=== PATIENT | male | born 1955 | race Caucasian/White ===

== ENCOUNTER 2016-11-17 08:05 | Outpatient (CLI) | payer OTHER ==
[~2016-11-17] VITALS: Ht 195.6 cm; Wt 75.0 kg
--- NOTE | ~2016-11-17 | HEMODYNAMI ---
PATIENT:SADE COOPER MEDICAL RECORD: [id number] : 57 LOCATION:D.CAT ADMISSION DATE: 11/17/16 Generatedon:11/17/201611:38 Patient name: SADE COOPER Patient #: [id number] SSN: : 1955 Date of study: 11/17/2016 Page: Of Hemodynamic Procedure Report Patient Data Patient Demographics Procedure consent was obtained First Name: SADE Gender: Male Last Name: KENNETH : 1955 Middle Initial: L Age: 61 year(s) Patient #: [id number] Race: Unknown Additional ID: [id number] Contact details [address]: [address] [place] [address] State: [place] City: [place] Zip code: [address] Past Medical History Allergies Allergen Reaction Date Comments Reported Penicillins 11/17/2016 Admission Admission Data Admission Date: 11/17/2016 Admission Time: 8:05 Admit Source: Other Height (in.): 77 BSA: 2.06 (m2) Height (cm.): 195.58 BMI: 19.57 (kg/m2) Weight (lbs.): 165 Weight (kg.): 74.84 Lab Results Lab Result Date: 11/17/2016 Lab Result Time: 0:00 Biochemistry Name Units Result Min Max BUN mg/dl 17 --(---*)-- 7 18 Creatinine mg/dl 0.9 --(-*--)-- 0.6 1.3 CBC Name Units Result Min Max Hemoglobin g/dl 16.8 --(---*)-- 13.5 17.5 Procedure Procedure Types Cath Procedure Diagnostic Procedure C [place] w/Coronaries FFR/IVUS Intra-Coronary IVUS Initial PCI Procedure Coronary Stent Initial Miscellaneous Procedures Moderate Sedation up to 15 minutes Peripheral Cath Diagnostic Procedure Cath Peripheral Pjcmo-Qkrsslt-Cao-Off Procedure Description Procedure Date Procedure Date: 11/17/2016 Procedure Start Time: 10:58 Procedure End Time: 11:31 Procedure Staff Name Function Candis Counts RT Scrub Rhett Thomas RT Monitor Rose Landa RN Nurse Librado Silva MD Performing Physician Aixa Gutierrez RT Monitor Procedure Data Cath Procedure Fluoroscopy Diagnostic fluoroscopy Total fluoroscopy Time: 6.9 time: 6.9 min min Diagnostic fluoroscopy Total fluoroscopy dose: 572 dose: 572 mGy mGy Contrast Material Contrast Material Type Amount (ml) Isovue 300 208 Entry Location Entry Primary Successful Side Size Upsize Upsize Entry Closure Succes sful Closure Location (Fr) 1 (Fr) 2 (Fr) Remarks Device Remarks Femoral Right 5 Fr 6 Fr Exoseal artery Short Estimated blood loss: 10 ml Diagnostic catheters Device Type Used For End Catheter Placement Cordis 5Fr JL 4.0 Procedure Catheter (MP) Cordis 5Fr 3DRC Catheter Procedure (MP) Cordis 5Fr Pigtail Procedure Catheter (MP) Diagnostic Infinity 6Fr Procedure JR 4.0 catheter Procedure Complications No complications Procedure Medications Medication Administration Route Dosage Oxygen NC 2 l/min Lidocaine 2% added to field 20 Heparin Flush Bag added to field 2 bags (1000units/500ml NS) 0.9% NaCl I.V. 100 ml/hr Versed I.V. 1 mg Fentanyl I.V. 50 mcg Versed I.V. 1 mg Fentanyl I.V. 50 mcg Versed I.V. 1 mg Fentanyl I.V. 50 mcg Versed I.V. 1 mg Fentanyl I.V. 50 mcg Heparin Bolus I.V. 7500 units Nitroglycerin IC/IA I.C. 50 mcg Brilinta P.O. 180 mg Hemodynamics Rest BSA: 2.06 (m2) HGB: 16.8 (g/dl) O2 Consumption: Estimated: 229.61 (ml/min) O2 Co nsumption indexed: Estimated:111.46 (ml/min/m) Heart Rate: 54 (bpm) Pressure Samples Time Site Value (mmHg) Purpose Heart Use Rate(bpm) 11:00 AO 123/65(88) Snapshot 62 11:04 LV 127/-13,9 Snapshot 65 11:04 LV 128/0,16 Pullback 74 11:04 AO 129/64(91) Pullback 74 Gradients Valve Time Site 1 Site 2 Mean SEP/DFP Peak To Heart Use (mmHg) (sec/min) Peak Rate (mmHg) (bpm) Aortic 11:04 LV AO 0 8 0 74 128/0,16 129/64(91) Calculations Valve P-P Mean Valve Index Valve Source Name Gradient Area Flow (cm2) Aortic 0 0 0 0 Snapshots Pre Cath Intra NCS Post Cath Vital Signs Time Heart Resp SPO2 NIBP (mmHg) Rhythm Pain Sedation Rate (ipm) (%) Status Level (bpm) 10:37:14 52 24 100 155/79(126) NSR 0 (11) 10(A) , No pain 10:41:38 52 19 100 152/73(124) NSR 0 (11) 10(A) , No pain 10:46:00 59 17 98 138/72(114) NSR 0 (11) 10(A) , No pain 10:50:16 58 16 97 128/72(101) NSR 0 (11) 10(A) , No pain 10:54:34 59 16 98 120/62(91) NSR 0 (11) 10(A) , No pain 10:58:46 56 15 99 137/67(108) NSR 0 (11) 9(A) , No pain 11:03:02 68 16 97 131/69(115) NSR 0 (11) 9(A) , No pain 11:07:14 66 16 98 121/70(107) NSR 0 (11) 9(A) , No pain 11:11:24 66 15 96 117/72(91) NSR 0 (11) 9(A) , No pain 11:15:36 63 16 98 112/64(93) NSR 0 (11) 9(A) , No pain 11:19:46 68 14 96 109/63(76) NSR 0 (11) 9(A) , No pain 11:23:51 67 13 97 119/72(94) NSR 0 (11) 10(A) , No pain 11:27:59 65 13 98 126/76(112) NSR 0 (11) 10(A) , No pain 11:31:49 72 24 99 98/77(84) NSR 0 (11) 10(A) , No pain Medications Time Medication Route Dose Verified Delivered Reason Notes Effectiveness by by 10:38:14 Oxygen NC 2 Librado Buffie used for l/min Ricardo Landa outdoor adventure instructor 10:38:21 Lidocaine 2% added 20ml Librado Librado for local to vial Ricardo Silva MD anesthetic field 10:38:27 Heparin Flush added 2 Librado Librado used for Bag to bags Ricardo Sivla MD procedure (1000units/500ml field NS) 10:38:37 0.9% NaCl I.V. 100 Librado Buffie Per physician ml/hr Ricardo Landa RN 10:52:21 Versed I.V. 1 mg Librado Buffie for sedation Ricardo Landa RN 10:52:26 Fentanyl I.V. 50 Librado Buffie for sedation mcg Ricardo Landa RN 10:56:39 Versed I.V. 1 mg Librado Buffie for sedation Ricardo Landa RN 10:56:42 Fentanyl I.V. 50 Librado Buffie for sedation mcg Ricardo Landa RN 11:01:17 Versed I.V. 1 mg Librado Buffie for sedation Ricardo Landa RN 11:01:20 Fentanyl I.V. 50 Ilbrado Buffie for sedation mcg Ricardo Landa RN 11:08:58 Versed I.V. 1 mg Librado Buffie for sedation Ricardo Landa RN 11:09:01 Fentanyl I.V. 50 Librado Buffie for sedation mcg Ricardo Landa RN 11:15:20 Heparin Bolus I.V. 7500 Librado Buffie for units Ricardo Landa RN anticoagulation 11:22:01 Nitroglycerin I.C. 50 Librado Librado for IC/IA mcg Ricardo Silva MD vasodilation 11:30:46 Brilinta P.O. 180 Librado Buffie for mg Ricardo Landa RN antiplatelet therapy Procedure Log Time Note 10:27:09 Rhett HERZOG(R) (CV) sent for patient. Start room use. 10:27:10 Time tracking: Regular hours 10:27:16 Plan of Care:Hemodynamics will remain stable., Cardiac rhythm will remain stable., Comfort level will be maintained., Respiratory function will remain adequate., Patient/ family verbilizes understanding of procedure., Procedure tolerated without complication., Recovers from procedure without complications.. 10:30:37 Patient received from Pre/Post Procedure Room to CCL 2 Alert and oriented. Tansferred to table in Supine position. 10:30:47 Correct patient and procedure confirmed by team. 10:30:47 Warm blankets applied, and minoo hugger turned on for patient comfort. 10:30:49 Signed procedure consent form obtained from patient. 10:30:51 ECG and BP/O2 sat monitors applied to patient. 10:30:52 Full Disclosure recording started 10:36:08 Vital chart was started 10:36:25 Baseline sample Acquired. 10:36:30 Rhythm: sinus bradycardia 10:38:14 Oxygen 2 l/min NC was administered by Rose Landa RN; used for procedure; 10:38:21 Lidocaine 2% 20ml vial added to field was administered by Librado Silva MD; for local anesthetic; 10:38:27 Heparin Flush Bag (1000units/500ml NS) 2 bags added to field was administered by Librado Silva MD; used for procedure; 10:38:37 0.9% NaCl 100 ml/hr I.V. was administered by Rose Landa RN; Per physician; 10:43:08 H&P Date Dictated: 11/07/2016 Within 30 days and on chart., H&P Addendum completed by physician on day of procedure. (MUST COMPLETE FOR ALL OUTPATIENTS). 10:43:12 Pre-procedure instructions explained to patient. 10:43:13 Pre-op teaching completed and patient verbalized understanding. 10:43:15 Family in waiting room. 10:43:18 Patient NPO since Midnight. 10:43:33 Patient allergic to Penicillins 10:43:37 Is the patient allergic to Iodine/contrast media? No. 10:43:41 Is patient on blood thinner?No 10:43:54 Patient diabetic? No. 10:43:59 ----Pre-sedation anethsthesia assessment.---- 10:44:04 Previous problem with sedation/anesthesia? No ? 10:44:05 Snore? Yes 10:44:07 Sleep apnea? Yes 10:44:08 Deviated septum? No 10:44:09 Opens mouth fully? Yes 10:44:10 Sticks out tongue? Yes 10:44:13 Airway obstruction? No ? 10:44:28 Dentures? Yes UPPER IN TIGHT 10:44:35 Patient pain scale 0/10 ?. 10:44:48 IV patent on arrival in right forearm with 0.9% NaCl at [facility]. 10:47:42 Lab Result : Hemoglobin 16.8 g/dl 10:47:42 Lab Result : Creatinine 0.9 mg/dl 10:47:42 Lab Result : BUN 17 mg/dl 10:48:00 Lab results completed and on chart. 10:48:05 Bilateral groins area was prepped with chlora-prep and draped in sterile fashion 10:48:06 Alarms reviewed by R. N. 10:48:07 Sharps counted by scrub and verified by R.N. 10:48:44 Zero performed for pressure channel P1 10:48:54 Use device set Femoral Dx 10:48:56 Acist Syringe opened to sterile field. 10:48:57 Medline Cath Pack opened to sterile field. 10:48:57 Bag Decanter opened to sterile field. 10:48:58 St Ignacio 260cm J .035 wire opened to sterile field. 10:48:58 Terumo 5Fr Haworth Sheath opened to sterile field. 10:49:00 Acist Manifold opened to sterile field. 10:49:00 Acist Hand Control opened to sterile field. 10:49:01 Diagnostic Infinity 5Fr Multipack catheter opened to sterile field. 10:49:02 Tegaderm 4 x 4 opened to sterile field. 10:50:56 --------ALL STOP TIME OUT------ 10:50:56 Physician arrived 10:50:57 Final Timeout: patient, procedure, and site verified with staff and physician. All members of the team are in agreement. 10:50:59 Bilateral groins site verified by team. 10:51:03 Physical assessment completed. ASA score P 2 - A patient with mild systemic disease as per Librado Silva MD. 10:51:23 Sedation plan: IV Moderate Sedation Versed, Fentanyl 10:52:21 Versed 1 mg I.V. was administered by Rose Landa RN; for sedation; 10::26 Fentanyl 50 mcg I.V. was administered by Rose Landa RN; for sedation; 10:56:24 Diagnostic Cath Status : Elective 10:56:29 Admit Source: Other 10::39 Versed 1 mg I.V. was administered by Rose Landa RN; for sedation; :56:39 Patient Height : 195.58 cm 10:56:42 Fentanyl 50 mcg I.V. was administered by Rose Landa RN; for sedation; 10:57:09 Patient Weight : 74.84 kg 10:58:13 Procedure started. 10:58:17 Local anesthetic to right femoral artery with Lidocaine 2% by Librado Silva MD.INITIAL ACCESS ONLY 10:59:26 A 5 Fr sheath was inserted into the Right Femoral artery 10:59:52 A Cordis 5Fr JL 4.0 Catheter (MP) was advanced over the wire and used for Procedure. 11:00:24 LCA angiography performed. 11:01:07 Catheter removed. 11:01:17 Versed 1 mg I.V. was administered by Rose Landa RN; for sedation; 11:01:20 Fentanyl 50 mcg I.V. was administered by Rose Landa RN; for sedation; 11:01:40 A Cordis 5Fr 3DRC Catheter (MP) was advanced over the wire and used for Procedure. 11:02:11 RCA angiography performed. 11:02:50 Catheter removed. 11:03:11 A Cordis 5Fr Pigtail Catheter (MP) was advanced over the wire and used for Procedure. 11:04:37 LV hemodynamics recorded. 11:04:39 LV gram done using UNGER 11:04:46 EF : 55 % 11:05:32 CATHETER PULLED DOWN FOR AO 11:05:34 Abdominal Aortagram was performed. 11:06:04 Left leg runoff performed. 11:07:29 Right leg runoff performed. 11:08:58 Versed 1 mg I.V. was administered by Rose Landa RN; for sedation; 11:09:01 Fentanyl 50 mcg I.V. was administered by Rose Landa RN; for sedation; 11:10:14 Catheter removed. 11:11:12 Floyd BMW [place] 2 J-tip 300cm 0.014 guide wir opened to sterile field. 11:11:13 Merit BasixCompak Inflation Kit opened to sterile field. 11:11:20 High Pressure Extension Tubing (Ricardo) opened to sterile field. 11:11:37 [place] IVUS Catheter opened to sterile field. 11:12:03 A Diagnostic Infinity 6Fr JR 4.0 catheter was advanced over the wire and used for Procedure. 11:12:18 Terumo 6Fr Haworth Sheath opened to sterile field. 11:12:26 Sheath upsized to a 6 Fr Short. 11:15:20 Heparin Bolus 7500 units I.V. was administered by Rose Landa RN; for anticoagulation; 11:15:35 BMW wire advanced. 11:19:09 IVUS catheter advanced over wire. 11:: FFR/IVUS 11:19:13 IVUS pass to RCA lesion performed. 11:22:01 Nitroglycerin IC/IA 50 mcg I.C. was administered by Librado Silva MD; for vasodilation; 11::18 IVUS catheter removed over wire. 11:23:45 ACC PCI Site: dRCA has 72% stenosis. 11:26:37 Inflation Number: 1 A G2Linktronic Integrity 2.5 X 22 stent was prepped and advanced across the Dist RCA. The stent was deployed at 12 HAILEY for 0:10 (min:sec). 11::50 Stent catheter was removed intact over wire. 11::51 Wire removed. 11::52 Guide catheter removed. 11:27:03 Cordis 6Fr Exoseal opened to sterile field. 11:27:23 Sheath removed intact; hemostasis achieved with Exoseal to the Right Femoral artery. 11:27:28 Procedure ended.(Physican Out) 11:27:41 Fluoroscopy time 06.90 minutes. 11:27:49 Fluoroscopy dose: 572 mGy 11:27:49 Flurop Dose total: 572 11:28:05 Contrast amount:Isovue 300 208ml. 11:28:06 Sharps counted by scrub and verified by R.N. 11:28:46 Procedure type changed to Cath procedure, Diagnostic procedure, LHC, LHC w/Coronaries, FFR/IVUS, Intra-Coronary IVUS Initial, PCI procedure, Coronary Stent Initial, Miscellaneous Procedures, Moderate Sedation up to 15 minutes, Peripheral Cath Diagnostic Procedure, Cath Peripheral, Gtkem-Pfgvasz-Eql-Off 11:30:04 Insertion/operative site no bleeding no hematoma. 11:30:09 Post-op/insertion site Right Femoral artery dressed using a 4 x 4 and Tegaderm. 11:30:12 Post Procedure Pulses reassessed and unchanged 11:30:18 Post-procedure physical assessment completed. ASA score P 2 - A patient with mild systemic disease as per Librado Silva MD. 11:30:27 Post procedure rhythm: unchanged. 11:30:30 Estimated blood loss: 10 ml 11:30:32 Post procedure instruction explained to patient.Patient verbalizes understanding. 11:30:45 Procedure and supply charges have been captured, reviewed, submitted and are correct. 11:30:46 Brilinta 180 mg P.O. was administered by Rose Landa RN; for antiplatelet therapy; 11:31:00 Procedure Complication : No complications 11:31:04 Vital chart was stopped 11:31:06 See physician's report for complete and final results. 11:31:17 Report given to Pre/Post Procedure Room. 11:31:34 Patient transfered to Pre/Post Procedure Room with Stretcher. 11:31:38 Full Disclosure recording stopped 11:31:38 Procedure ended. 11:31:41 End room use (Document Last) Intervention Summary Intervention Notes Time ActionType Lesion and Equipment Action# Pressure Duration Attributes Used 11:26:37 Place stent Dist RCA Medtronic 1 12 00:10 Integrity 2.5 X 22 stent Device Usage Item Name Manufacture Quantity Catalog Hospital Part Current Minimal L ot# / Number Charge Number Stock Stock Serial# Code Acist Acist 1 [id number] [id number] 316798 912349 20 Syringe Medical Systems Inc Bag Microtek 1 2002S 108176 48076 442660 5 Decanter Medical Inc. Medline Cardinal 1 [id number] 224548 35133 655785 5 Cath Pack Health Terumo 5Fr Terumo 1 [id number] 386767 479689 888720 [address] St Ignacio 1 735281 827170 925052 972293 30 260cm J .035 wire Acist Hand Acist 1 55698 809719 173992 188508 5 Control Medical Systems Inc Acist Acist 1 93684 471375 357565 890719 5 Manifold Medical Systems Inc Diagnostic Cardinal 1 [id number] 486440 20526 042525 30 Infinity Health 5Fr Multipack catheter Tegaderm 4 3M 1 1626W 662398 507017 628705 5 x 4 Cordis 5Fr Cardinal 1 088165 5 JL 4.0 Health Catheter (MP) Cordis 5Fr Cardinal 1 837361 5 3DRC Health Catheter (MP) Cordis 5Fr Cardinal 1 410217 5 Pigtail Health Catheter (MP) Floyd BMW Floyd 1 [id number] 332746 038139 655885 5 [place] 2 Vascular J-tip 300cm 0.014 guide wir Merit Merit 1 [id number] 746533 095680 053020 15 [id number] Medical Inflation Kit High Merit 1 [id number] 064993 51531 782150 10 Pressure Medical Extension Tubing (Silva) [place] 1 [id number] 143537 735872 398351 8 [place] IVUS Catheter Diagnostic Cardinal 1 [id number] 850459 900757 0248149 5 Infinity Health 6Fr JR 4.0 catheter Terumo 6Fr Terumo 1 [id number] 048502 329638 728652 40 Haworth Sheath Medtronic Medtronic 1 [id number] 437742 974564 1 0 [id number] Integrity 2.5 X 22 stent Cordis 6Fr Cardinal 1 EX600 919248 110117 873084 10 [facility] Property[employer]uru Signature Audit [place] Stage Time Signature Unsigned Intra-Procedure 11/17/2016 Candis Chirinos Counts 11:34:45 AM Counts RT(R) RT(R) 11/17/2016 11:37:57 AM Intra-Procedure 11/17/2016 Aixa Gutierrez 11:38:31 AM RT(R) Signatures Monitor : Rhett Thomas RT Signature : Date : Time : Monitor : Aixa Gutierrez Signature : RT Date : Time : [place] [id number] [place] [address]
[2016-11-17] MEDS ORDERED: TYLENOL W/CODEI1 TAB PO (08:47)
[2016-11-17] MEDS ORDERED: TRAZODONE HCL150 MG PO (08:47)
[2016-11-17] MEDS ORDERED: ZANAFLEX4 MG PO (08:48)
[2016-11-17 08:49] VITALS: BP 169/78; Ht 195.6 cm; Wt 75.0 kg
[2016-11-17 08:58] LABS: BASOPHILS 0.2 % (0-2); EOSINOPHILS 2.3 % (0-7); HEMATOCRIT 49.8 % (42.0-54.0); HEMOGLOBIN 16.8 g/dL (13.5-17.5); IMMATURE GRANULOCYTES 0.2 % (0-5); MCH 33.7 pg (26.0-34.0); MCHC 33.7 g/dL (31.0-37.0); MCV 99.8 fL (80.0-100.0); MEAN PLATELET VOLUME 10.5 fL (7.4-10.4); MONOCYTES 5.3 % (2-11); PLATELET COUNT 205 10x3/uL (130-400); RBC 4.99 10x6/uL (4.20-6.10); RDW 12.7 % (11.5-14.5); WBC 11.2 10x3/uL (4.8-10.8)
[2016-11-17 09:08] LABS: CALC OSMOLALITY 283 mosm/kg (275-300); CALCIUM 9.3 mg/dL (8.5-10.1); CARBON DIOXIDE 26.4 mmol/L (21.0-32.0); CHLORIDE - SERUM 104 mmol/L (98-107); CREATININE - SERUM 0.9 mg/dL (0.6-1.3); GLUCOSE 116 mg/dL (74-106); POTASSIUM - SERUM 4.2 mmol/L (3.5-5.1); SODIUM 141 mmol/L (136-145); UREA NITROGEN 17 mg/dL (7-18); eGFR NON AFRICAN AMERICAN > 90 mL/min (90-120)
[2016-11-17] MEDS ORDERED: BAYER CHEWABLE81 MG PO (11:43)
[2016-11-17] MEDS ORDERED: BRILINTA90 MG PO (11:50)
--- NOTE | 2016-11-17 12:42 | NUR ---
1200 LYING FLAT, ROOM AIR WITH NO DISTRESS. NSR RATE 62 W NO C/O CHEST PAIN. PULSES PALP X 4. R GROIN 6F EXOSEAL C/D/I WITH NO HEMATOMA OR BLEEDING. AT BEDSIDE. 1240 VOIDED 400CC VIA URINAL, R GROIN REMAINS C/D/I
--- NOTE | 2016-11-17 13:12 | NUR ---
EATING TURKEY SANDWICH WITH ASSISTANCE FROM AT BEDSIDE.
--- NOTE | 2016-11-17 15:30 | NUR ---
1500 HOB ELEVATED, WILL MONITOR R GROIN FOR BLEEDING. ALL VITALS WNL. 1530 AMBULATED TO BATHROOM TO VOID. PIV REMOVED FROM RIGHT FOREARM WITH BANDAID APPLIED.
--- NOTE | 2016-11-17 15:38 | NUR ---
D/C INSTRUCTIONS DISCUSSED WITH PATIENT AND AT BEDSIDE. WHEELED OUT VIA WHEELCHAIR.
== END 2016-11-17 15:39 | disposition home or self-care (01) ==
LOC: D.CATH 08:05
PROVIDERS: Internal Medicine Cardiovascular Disease
DX: I25.119 Atherosclerotic heart disease of native coronary artery with unspecified angina pectoris (principal); I70.213 Atherosclerosis of native arteries of extremities with intermittent claudication, bilateral legs; Z01.812 Encounter for preprocedural laboratory examination

== ENCOUNTER 2016-12-31 11:43 | Outpatient (CLI) | payer OTHER ==
[~2016-12-31] VITALS: Ht 195.6 cm; Wt 79.5 kg
--- NOTE | ~2016-12-31 | HEMODYNAMI ---
PATIENT:SADE COOPER MEDICAL RECORD: [id number] : 57 LOCATION:D.CAT ADMISSION DATE: 12/31/16 Generatedon:12/31/201617:33 Patient name: SADE COOPER Patient #: [id number] SSN: : 1955 Date of study: 12/31/2016 Page: Of Hemodynamic Procedure Report Patient Data Patient Demographics Procedure consent was obtained First Name: SADE Gender: Male Last Name: KENNETH : 1955 Middle Initial: L Age: 61 year(s) Patient #: [id number] Race: Unknown Additional ID: [id number] Contact details [address]: [address] [place] [address] State: [place] City: [place] Zip code: [address] Past Medical History Allergies Allergen Reaction Date Comments Reported Penicillins 11/17/2016 Other allergy 12/31/2016 N Admission Admission Data Admission Date: 12/31/2016 Admission Time: 11:43 Lab Results Lab Result Date: 12/31/2016 Lab Result Time: 12:25 Biochemistry Name Units Result Min Max BUN mg/dl 13 --(--*-)-- 7 18 Creatinine mg/dl 0.7 --(*---)-- 0.6 1.3 CBC Name Units Result Min Max Hematocrit % 42.2 --(*---)-- 42 54 Hemoglobin g/dl 14.5 --(*---)-- 13.5 17.5 Procedure Procedure Types Cath Procedure Miscellaneous Procedures Peripheral vascular Intervention Stent Stent-Fem/Popw/plasty Procedure Description Procedure Date Procedure Date: 12/31/2016 Procedure Start Time: 15:12 Procedure End Time: 17:30 Procedure Staff Name Function Candis Hendricks RT Scrub Rose Landa RN Nurse Librado Hernandez MD Performing Physician Koby Robertson RT Monitor Procedure Data Cath Procedure Fluoroscopy Diagnostic fluoroscopy Total fluoroscopy Time: time: 65.5 min 65.5 min Diagnostic fluoroscopy Total fluoroscopy dose: 573 dose: 573 mGy mGy Contrast Material Contrast Material Type Amount (ml) Isovue 300 205 Entry Location Entry Primary Successful Side Size Upsize 1 Upsize Entry Closure [place] ccessful Closure Location (Fr) (Fr) 2 (Fr) Remarks Device Remarks Femoral Right 6 Fr 6 Fr 6 Fr Exoseal artery Short Mid-Length Short Estimated blood loss: 10 ml Diagnostic catheters Device Type Used For End Catheter Placement Cordis Tempo 5Fr UF Procedure catheter Procedure Complications No complications Procedure Medications Medication Administration Route Dosage Oxygen NC 2 l/min Lidocaine 2% added to field 20 Heparin Flush Bag added to field 2 bags (1000units/500ml NS) 0.9% NaCl I.V. 100 ml/hr Versed I.V. 1 mg Fentanyl I.V. 50 mcg Heparin Bolus I.V. 7000 units Versed I.V. 1 mg Fentanyl I.V. 50 mcg Versed I.V. 1 mg Fentanyl I.V. 25 mcg Fentanyl I.V. 25 mcg Versed I.V. 1 mg Fentanyl I.V. 50 mcg Fentanyl I.V. 50 mcg Heparin Bolus I.V. 4000 units Fentanyl I.V. 50 mcg Versed I.V. 1 mg Versed I.V. 1 mg Brilinta P.O. 90 mg Hemodynamics Rest HGB: 14.5 (g/dl) Heart Rate: 59 (bpm) Snapshots Pre Cath Intra NCS Post Cath Vital Signs Time Heart Resp SPO2 NIBP (mmHg) Rhythm Pain Sedation Rate (ipm) (%) Status Level (bpm) 14:56:32 64 16 100 163/81(129) NSR 0 (11) 10(A) , No pain 15:00:57 54 24 100 149/76(121) NSR 0 (11) 10(A) , No pain 15:05:13 59 14 100 150/77(118) NSR 0 (11) 10(A) , No pain 15:09:33 52 15 99 158/73(112) NSR 0 (11) 10(A) , No pain 15:13:53 63 20 98 134/79(93) NSR 0 (11) 10(A) , No pain 15:18:07 57 16 98 143/72(114) NSR 0 (11) 9(A) , No pain 15:22:23 59 16 98 153/74(85) NSR 0 (11) 9(A) , No pain 15:26:45 62 24 97 121/69(90) NSR 0 (11) 9(A) , No pain 15:30:55 59 15 98 137/71(86) NSR 0 (11) 9(A) , No pain 15:35:09 62 15 98 126/73(103) NSR 0 (11) 9(A) , No pain 15:39:19 57 15 98 140/74(117) NSR 0 (11) 9(A) , No pain 15:43:33 55 13 96 118/67(78) NSR 0 (11) 9(A) , No pain 15:47:43 56 13 97 120/65(92) NSR 0 (11) 9(A) , No pain 15:51:49 56 14 97 134/77(104) NSR 0 (11) 9(A) , No pain 15:56:03 55 13 97 114/68(89) NSR 0 (11) 9(A) , No pain 16:00:10 55 15 96 119/65(88) NSR 0 (11) 9(A) , No pain 16:04:20 55 14 95 106/62(84) NSR 0 (11) 9(A) , No pain 16:09:23 57 17 96 119/64(85) NSR 0 (11) 9(A) , No pain 16:13:35 57 16 96 117/58(77) NSR 0 (11) 9(A) , No pain 16:17:43 58 16 96 116/70(82) NSR 0 (11) 9(A) , No pain 16:21:45 67 23 93 127/83(97) NSR 0 (11) 9(A) , No pain 16:25:57 58 18 95 119/69(92) NSR 0 (11) 9(A) , No pain 16:30:07 57 19 96 127/65(91) NSR 0 (11) 9(A) , No pain 16:34:21 60 17 94 119/65(89) NSR 0 (11) 9(A) , No pain 16:38:30 57 17 96 112/66(80) NSR 0 (11) 9(A) , No pain 16:42:36 53 18 97 128/66(99) NSR 0 (11) 9(A) , No pain 16:46:48 58 19 97 128/68(107) NSR 0 (11) 9(A) , No pain 16:50:58 59 18 96 134/72(105) NSR 0 (11) 9(A) , No pain 16:55:10 61 19 96 129/77(90) NSR 0 (11) 9(A) , No pain 16:59:22 60 16 96 133/71(105) NSR 0 (11) 9(A) , No pain 17:03:34 61 15 95 119/71(87) NSR 0 (11) 9(A) , No pain 17:07:42 60 16 96 129/70(95) NSR 0 (11) 9(A) , No pain 17:11:56 60 16 95 112/63(77) NSR 0 (11) 9(A) , No pain 17:16:01 60 17 95 101/65(79) NSR 0 (11) 9(A) , No pain 17:20:05 64 19 95 116/66(98) NSR 0 (11) 10(A) , No pain 17:24:11 63 26 94 111/75(92) NSR 0 (11) 10(A) , No pain 17:28:17 60 17 95 120/71(102) NSR 0 (11) 10(A) , No pain Medications Time Medication Route Dose Verified Delivered Reason Notes Effectiveness by by 14:58:42 Oxygen NC 2 Librado Buffie used for l/min Ricardo Landa RN procedure 14:58:59 Lidocaine 2% added 20ml Librado Librado for local to vial Ricardo Hernandez MD anesthetic field 14:59:06 Heparin Flush added 2 Librado Librado used for Bag to bags Ricardo Hernandez MD procedure (1000units/500ml field NS) 14:59:15 0.9% NaCl I.V. 100 Librado Buffie Per physician ml/hr Ricardo Landa RN 15:10:51 Versed I.V. 1 mg Librado Buffie for sedation Ricardo Landa RN 15:10:57 Fentanyl I.V. 50 Librado Buffie for sedation mcg Ricardo Landa RN 15:21:14 Heparin Bolus I.V. 7,000 Librado Buffie for verifi ed units Ricardo Landa RN anticoagulation with dr hernandez 15:21:58 Versed I.V. 1 mg Librado Buffie for sedation Ricardo Landa RN 15:22:01 Fentanyl I.V. 50 Librado Buffie for sedation mcg Ricardo Landa RN 15:37:20 Versed I.V. 1 mg Librado Buffie for sedation Ricardo Landa RN 15:37:24 Fentanyl I.V. 25 Librado Buffie for sedation mcg Ricardo Landa RN 15:55:39 Fentanyl I.V. 25 Librado Buffie for sedation mcg Ricardo Landa RN 16:06:39 Versed I.V. 1 mg Librado Buffie for sedation Ricardo Landa RN 16:06:44 Fentanyl I.V. 50 Librado Buffie for sedation mcg Ricardo Landa RN 16:22:48 Fentanyl I.V. 50 Librado Buffie for sedation mcg Ricardo Landa RN 16:40:51 Fentanyl I.V. 50 Librado Buffie for sedation mcg Ricardo Landa RN 16:46:46 Heparin Bolus I.V. 4000 Librado Buffie for verifi ed units Ricardo Landa RN anticoagulation with dr hernandez' 16:58:59 Versed I.V. 1 mg Librado Buffie for sedation Ricardo Landa RN 17:15:31 Versed I.V. 1 mg Librado Buffie for sedation Ricardo Landa RN 17:27:11 Brilinta P.O. 90 mg Librado Buffie for Ricardo Landa RN antiplatelet therapy Procedure Log Time Note 14:38:19 Rose Landa RN sent for patient. Start room use. 14:38:20 Time tracking: Regular hours 14:38:24 Plan of Care:Hemodynamics will remain stable., Cardiac rhythm will remain stable., Comfort level will be maintained., Respiratory function will remain adequate., Patient/ family verbilizes understanding of procedure., Procedure tolerated without complication., Recovers from procedure without complications.. 14:49:16 Patient received from Pre/Post Procedure Room to CCL 2 Alert and oriented. Tansferred to table in Supine position. 14:49:17 Correct patient and procedure confirmed by team. 14:49:17 Warm blankets applied, and minoo hugger turned on for patient comfort. 14:49:18 Signed procedure consent form obtained from patient. 14:49:19 ECG and BP/O2 sat monitors applied to patient. 14:49:20 Full Disclosure recording started 14:55:18 Vital chart was started 14:58:42 Oxygen 2 l/min NC was administered by Rose Landa RN; used for procedure; 14:58:59 Lidocaine 2% 20ml vial added to field was administered by Librado Hernandez MD; for local anesthetic; 14:59:06 Heparin Flush Bag (1000units/500ml NS) 2 bags added to field was administered by Librado Hernandez MD; used for procedure; 14:59:15 0.9% NaCl 100 ml/hr I.V. was administered by Rose Landa RN; Per physician; 15:03:54 Baseline sample Acquired. 15:04:01 Rhythm: sinus rhythm 15:04:21 H&P Date Dictated: 12/19/2016 Within 30 days and on chart., H&P Addendum completed by physician on day of procedure. (MUST COMPLETE FOR ALL OUTPATIENTS). 15:04:22 Pre-procedure instructions explained to patient. 15:04:23 Pre-op teaching completed and patient verbalized understanding. 15:04:24 Family in waiting room. 15:04:25 Patient NPO since Midnight. 15:04:38 Patient allergic to Other allergyPCN 15:04:42 Is the patient allergic to Iodine/contrast media? No. 15:04:44 Is patient on blood thinner?Yes 15:04:50 ACC The patient was administered the following blood thiners within the last 24 hours: ACCBrilinta 15:04:55 Patient diabetic? No. 15:05:00 Previous problem with sedation/anesthesia? No ? 15:05:01 Snore? Yes 15:05:03 Sleep apnea? No 15:05:04 Opens mouth fully? Yes 15:05:04 Deviated septum? No 15:05:05 Sticks out tongue? Yes 15:05:08 Airway obstruction? No ? 15:05:14 Dentures? Yes IN TIGHT 15:05:18 Pre procedure: right dorsailis pedis pulse Doppler 15:05:20 Pre procedure: left dorsailis pedis pulse Doppler 15:05:23 Patient pain scale 0/10 ?. 15:05:35 IV patent on arrival in left hand with 0.9% NaCl at [facility]. 15:05:58 Lab results completed and on chart. 15:06:39 Lab Result : Hemoglobin 14.5 g/dl 15::39 Lab Result : Hematocrit 42.2 % 15:06:39 Lab Result : BUN 13 mg/dl 15:06:39 Lab Result : Creatinine 0.7 mg/dl 15:06:46 Bilateral groins area was prepped with chlora-prep and draped in sterile fashion 15:06:47 Sharps counted by scrub and verified by R.N. 15:06:47 Alarms reviewed by R. N. 15:07:07 Use device set Femoral PCI 15:07:08 Tegaderm 4 x 4 opened to sterile field. 15:07:09 Acist Manifold opened to sterile field. 15:07:09 Merit BasixCompak Inflation Kit opened to sterile field. 15:07:10 St Ignacio 260cm J .035 wire opened to sterile field. 15:07:12 Terumo 6Fr [place] Sheath opened to sterile field. 15:07:12 Medline Cath Pack opened to sterile field. 15:07:13 Bag Decanter opened to sterile field. 15:07:14 Acist Hand Control opened to sterile field. 15:07:15 Acist Syringe opened to sterile field. 15:08:05 CSI Regalia wire 300cm opened to sterile field. 15:08:11 Physician arrived 15:08:12 Final Timeout: patient, procedure, and site verified with staff and physician. All members of the team are in agreement. 15:08:12 --------ALL STOP TIME OUT------ 15:08:13 Bilateral groins site verified by team. 15:08:15 Physical assessment completed. ASA score P 2 - A patient with mild systemic disease as per Librado Hernandez MD. 15:08:18 Sedation plan: IV Moderate Sedation Versed, Fentanyl 15:10:51 Versed 1 mg I.V. was administered by Rose Landa RN; for sedation; 15:10:57 Fentanyl 50 mcg I.V. was administered by Rose Landa RN; for sedation; 15:12:32 Procedure started. 15:12:38 Local anesthetic to right femoral artery with Lidocaine 2% by Librado Hernandez MD.INITIAL ACCESS ONLY 15:12:48 A 6 Fr Short sheath was inserted into the Right Femoral artery 15:13:38 Zero performed for pressure channel P1 15:14:44 Terumo ANGLE 260cm glide wire opened to sterile field. 15:15:11 Terumo 6Fr [place] Destination Sheath opened to sterile field. 15:15:42 A Cordis Tempo 5Fr UF catheter was advanced over the wire and used for Procedure. 15:15:48 GLIDE wire advanced. 15:16:12 GLIDE WIRE ADVANCED AROUND HORN. 15:16:22 Catheter removed. 15:16:41 Sheath upsized to a 6 Fr Mid-Length. 15:21:14 Heparin Bolus 7,000 units I.V. was administered by Rose Landa RN; for anticoagulation; verified with dr hernandez 15:21:58 Versed 1 mg I.V. was administered by Rose Landa RN; for sedation; 15:22:01 Fentanyl 50 mcg I.V. was administered by Rose Landa RN; for sedation; 15:24:26 Regalia wire advanced. 15:26:27 Terumo 5FR STRAIGHT 100CM glide catheter opened to sterile field. 15:27:06 5 Fr STRAIGHT GLIDE guide catheter was inserted over the wire 15:34:26 Wire removed. 15:35:11 CSI ASAHI TREASURE 12 300CM guide wire opened to sterile field. 15:35:41 TREASURE wire advanced. 15:37:20 Versed 1 mg I.V. was administered by Rose Landa RN; for sedation; 15:37:24 Fentanyl 25 mcg I.V. was administered by Rose Landa RN; for sedation; 15:54:33 Wire advanced across lesion. 15:55:39 Fentanyl 25 mcg I.V. was administered by Rose Landa RN; for sedation; 16:06:39 Versed 1 mg I.V. was administered by Rose Landa RN; for sedation; 16:06:44 Fentanyl 50 mcg I.V. was administered by Rose Landa RN; for sedation; 16:15:05 Inflation number: 1 A Saber 2 x 2 x 150 balloon was prepped and advanced across the Mid Superficial Femoral, Left, then inflated to 3 HAILEY for 0:10 (min:sec). 16:16:31 Wire removed. 16:17:14 Floyd Fielder XT J 300cm 0.014 guide wire opened to sterile field. 16:17:42 FIELDER wire advanced. 16:18:33 CSI Regalia wire 300cm opened to sterile field. 16:19:01 Wire removed. 16:19:06 REGALIA wire advanced. 16:22:48 Fentanyl 50 mcg I.V. was administered by Rose Landa RN; for sedation; 16:24:01 Wire removed. 16:25:39 CSI ASAHI TREASURE 12 300CM guide wire opened to sterile field. 16:25:44 TREASURE wire advanced. 16:40:51 Fentanyl 50 mcg I.V. was administered by Rose Landa RN; for sedation; 16:44:46 Wire advanced across lesion. 16:45:29 Inflation number: 2 The Saber 2 x 2 x 150 balloon was reinflated across the Mid Superficial Femoral, Left, to 10 HAILEY for 0:10 (min:sec). 16:45:57 Inflation number: 3 The Saber 2 x 2 x 150 balloon was reinflated across the Mid Superficial Femoral, Left, to 10 HAILEY for 0:10 (min:sec). 16:46:20 Inflation number: 4 The Saber 2 x 2 x 150 balloon was reinflated across the Mid Superficial Femoral, Left, to 10 HAILEY for 0:10 (min:sec). 16:46:46 Heparin Bolus 4000 units I.V. was administered by Rose Landa RN; for anticoagulation; verified with dr hernandez' 16:46:47 Inflation number: 5 The Saber 2 x 2 x 150 balloon was reinflated across the Mid Superficial Femoral, Left, to 10 HAILEY for 0:10 (min:sec). 16:47:07 Balloon removed over the wire. 16:50:05 Inflation number: 6 A Saber 4.0 x 100 x 150 balloon was prepped and advanced across the Mid Superficial Femoral, Left, then inflated to 6 HAILEY for 0:10 (min:sec). 16:50:44 Inflation number: 7 The Saber 4.0 x 100 x 150 balloon was reinflated across the Mid Superficial Femoral, Left, to 6 HAILEY for 0:10 (min:sec). 16:51:12 Balloon removed over the wire. 16:55:32 Cordis SMART 6 X 150 X 120 stent was deployed across Mid Superficial Femoral, Left . 16:56:59 Stent catheter was removed intact over wire. 16:58:59 Versed 1 mg I.V. was administered by Rose Landa RN; for sedation; 17:00:21 Inflation number: 8 A Saber 6.0 X 100 X 150 balloon was prepped and advanced across the Mid Superficial Femoral, Left, then inflated to 10 HAILEY for 0:10 (min:sec). 17:01:24 Inflation number: 9 The Saber 6.0 X 100 X 150 balloon was reinflated across the Mid Superficial Femoral, Left, to 8 HAILEY for 0:10 (min:sec). 17:02:33 Inflation number: 10 The Saber 6.0 X 100 X 150 balloon was reinflated across the Mid Superficial Femoral, Left, to 10 HAILEY for 0:10 (min:sec). 17:03:36 Balloon removed over the wire. 17:04:52 Cordis 6Fr Exoseal opened to sterile field. 17:06:15 Inflation number: 11 A Saber 6.0 x 6 x 150 balloon was prepped and advanced across the Mid Superficial Femoral, Left, then inflated to 13 HAILEY for 0:10 (min:sec). 17:08:14 Balloon removed over the wire. 17:12:58 Cordis SMART 6 x 100 x 120 stent was deployed across Mid Superficial Femoral, Left . 17:13:28 Inflation number: 12 The Saber 6.0 X 100 X 150 balloon was reinflated across the Mid Superficial Femoral, Left, to 6 HAILEY for 0:10 (min:sec). 17:14:13 Inflation number: 13 The Saber 6.0 X 100 X 150 balloon was reinflated across the Mid Superficial Femoral, Left, to 5 HAILEY for 0:10 (min:sec). 17:15:31 Versed 1 mg I.V. was administered by Rose Landa RN; for sedation; 17:17:16 Inflation number: 14 The Saber 6.0 X 100 X 150 balloon was reinflated across the Mid Superficial Femoral, Left, to 4 HAILEY for 0:30 (min:sec). 17:18:13 Balloon removed over the wire. 17:18:14 Wire removed. 17:18:24 Sheath upsized to a 6 Fr Short. 17:18:32 Sheath removed intact; hemostasis achieved with Exoseal to the Right Femoral artery. 17:19:04 Procedure ended.(Physican Out) 17:22:29 Fluoroscopy time 65.50 minutes. 17:22:33 Fluoroscopy dose: 573 mGy 17:22:33 Flurop Dose total: 573 17:22:47 Contrast amount:Isovue 300 205ml. 17:23:05 Sharps counted by scrub and verified by R.N. 17:23:55 Insertion/operative site no bleeding no hematoma. 17:23:58 Post-op/insertion site Right Femoral artery dressed using a 4 x 4 and Tegaderm. 17:24:02 Post right femoral artery:stable, soft, clean and dry 17:24:03 Post Procedure Pulses reassessed and unchanged 17:24:05 Post-procedure physical assessment completed. ASA score P 2 - A patient with mild systemic disease as per Librado Hernandez MD. 17:24:07 Post procedure rhythm: unchanged. 17:24:10 Estimated blood loss: 10 ml 17:24:16 Patient needs reinforcement of post procedure teaching. 17:24:16 Post procedure instruction explained to patient.Patient verbalizes understanding. 17:25:18 Procedure type changed to Cath procedure, Miscellaneous Procedures, Peripheral vascular Intervention, Stent, Stent-Fem/Popw/plasty 17:27:11 Brilinta 90 mg P.O. was administered by Rose Landa RN; for antiplatelet therapy; 17:29:59 Procedure and supply charges have been captured, reviewed, submitted and are correct. 17:30:10 Procedure Complication : No complications 17:30:13 See physician's report for complete and final results. 17:30:13 Vital chart was stopped 17:30:15 Report given to PCU. 17:30:38 Patient transfered to PCU with Stretcher. 17:30:41 Full Disclosure recording stopped 17:30:41 Procedure ended. 17:31:36 End room use (Document Last) Intervention Summary Intervention Notes Time ActionType Lesion and Equipment Action# Pressure Duration Attributes Used 16:15:05 Inflate Mid Saber 2 x 1 3 00:10 balloon Superficial 2 x 150 Femoral, balloon Left 16:45:29 Reinflate Mid Saber 2 x 2 10 00:10 balloon Superficial 2 x 150 Femoral, balloon Left 16:45:57 Reinflate Mid Saber 2 x 3 10 00:10 balloon Superficial 2 x 150 Femoral, balloon Left 16:46:20 Reinflate Mid Saber 2 x 4 10 00:10 balloon Superficial 2 x 150 Femoral, balloon Left 16:46:47 Reinflate Mid Saber 2 x 5 10 00:10 balloon Superficial 2 x 150 Femoral, balloon Left 16:50:05 Inflate Mid Saber 4.0 6 6 00:10 balloon Superficial x 100 x Femoral, 150 Left balloon 16:50:44 Reinflate Mid Saber 4.0 7 6 00:10 balloon Superficial x 100 x Femoral, 150 Left balloon 16:55:32 Deploy self Mid Cordis 1 expanding Superficial SMART 6 X stent Femoral, 150 X 120 Left stent 17:00:21 Inflate Mid Saber 6.0 8 10 00:10 balloon Superficial X 100 X Femoral, 150 Left balloon 17:01:24 Reinflate Mid Saber 6.0 9 8 00:10 balloon Superficial X 100 X Femoral, 150 Left balloon 17:02:33 Reinflate Mid Saber 6.0 10 10 00:10 balloon Superficial X 100 X Femoral, 150 Left balloon 17:06:15 Inflate Mid Saber 6.0 11 13 00:10 balloon Superficial x 6 x 150 Femoral, balloon Left 17:12:58 Deploy self Mid Cordis 1 expanding Superficial SMART 6 x stent Femoral, 100 x 120 Left stent 17:13:28 Reinflate Mid Saber 6.0 12 6 00:10 balloon Superficial X 100 X Femoral, 150 Left balloon 17:14:13 Reinflate Mid Saber 6.0 13 5 00:10 balloon Superficial X 100 X Femoral, 150 Left balloon 17:17:16 Reinflate Mid Saber 6.0 14 4 00:30 balloon Superficial X 100 X Femoral, 150 Left balloon Device Usage Item Name Manufacture Quantity Catalog Hospital Part Current [facility] l Lot# / Number Charge Number Stock Stock Serial# Code [facility] 4 1 [id number] 262390 591489 5 x 4 1 [id number] [id number] 415463 268059 15 BasixCompak Inflation Kit Acist [facility] 1 40220 546888 891267 144289 [address] Ignacio 1 531519 377549 686574 566933 30 260cm J .035 wire Medline Cardinal 1 [id number] 062284 56413 183286 5 Cath Pack Health Terumo 6Fr Terumo 1 [id number] 381263 366446 542099 40 [place] Sheath Bag Microtek 1 [facility] 982866 82370 525684 5 Decanter [employer] Inc. Acist Hand Acist Medical 1 99941 135048 646921 294123 5 Control Systems Inc Acist Acist Medical 1 93445 706978 826715 101467 20 Syringe Systems Inc CSI Regalia Cardiovascular 2 [id number] 062529 113155 1 wire 300cm systems Terumo Terumo 1 [id number] 553420 960270 366563 5 ANGLE 260cm glide wire Terumo 6Fr Terumo 1 [id number] 198275 42587 281525 5 [place] Destination Sheath Cordis Cardinal 1 [id number] 742655 227330 595926 10 Tempo 5Fr Health UF catheter Terumo 5FR Terumo 1 [id number] 435455 37689 020069 4 STRAIGHT 100CM glide catheter CSI ASAHI Cardiovascular 2 [id number] 833618 866259 434842 5 TREASURE 12 systems 300CM guide wire Saber 2 x 2 Cardinal 1 [id number] 509525 482196 5 x 150 Health balloon Floyd Floyd 1 [id number] 329125 476834 684712 5 Fielder XT Vascular J 300cm 0.014 guide wire Saber 4.0 x Cardinal 1 [id number] 003142 599543 5 100 x 150 Health balloon Cordis Cardinal 1 [id number] 748111 879733 0 [id number] SMART 6 X Health 150 X 120 stent Saber 6.0 X Cardinal 1 [id number] 238780 162758 5 100 X 150 Health balloon Saber 6.0 x Cardinal 1 [id number] 946196 738955 315318 5 6 x 150 Health balloon Cordis Cardinal 1 [id number] 482897 865011 0 [id number] SMART 6 x Health 100 x 120 stent Cordis 6Fr Cardinal 1 [id number] 910392 225776 053122 10 [facility] Signature Audit [place] Stage Time Signature Unsigned Intra-Procedure 12/31/2016 Koby Robertson RT(Madhu) 5:33:50 PM Signatures Monitor : Koby Robertson RT Signature : Date : Time : [facility] [address] [facility] [place] [address]
[~2016-12-31 11:43] MED LIST: BAYER CHEWABLE81 MG PO; BRILINTA90 MG PO; TRAZODONE HCL150 MG PO; TYLENOL W/CODEI1 TAB PO; ZANAFLEX4 MG PO
[2016-12-31 12:13] VITALS: BP 157/69; BMI 20.2
[2016-12-31 12:31] LABS: BASOPHILS 0.4 % (0-2); EOSINOPHILS 2.7 % (0-7); HEMATOCRIT 42.2 % (42.0-54.0); HEMOGLOBIN 14.5 g/dL (13.5-17.5); IMMATURE GRANULOCYTES 0.1 % (0-5); MCH 33.3 pg (26.0-34.0); MCHC 34.4 g/dL (31.0-37.0); MCV 96.8 fL (80.0-100.0); MEAN PLATELET VOLUME 10.1 fL (7.4-10.4); MONOCYTES 6.8 % (2-11); PLATELET COUNT 206 10x3/uL (130-400); RBC 4.36 10x6/uL (4.20-6.10); RDW 13.3 % (11.5-14.5); WBC 8.3 10x3/uL (4.8-10.8)
[2016-12-31 12:41] LABS: CALC OSMOLALITY 278 mosm/kg (275-300); CALCIUM 8.5 mg/dL (8.5-10.1); CARBON DIOXIDE 27.7 mmol/L (21.0-32.0); CHLORIDE - SERUM 105 mmol/L (98-107); CREATININE - SERUM 0.7 mg/dL (0.6-1.3); GLUCOSE 96 mg/dL (74-106); POTASSIUM - SERUM 3.4 mmol/L (3.5-5.1); SODIUM 140 mmol/L (136-145); UREA NITROGEN 13 mg/dL (7-18); eGFR NON AFRICAN AMERICAN > 90 mL/min (90-120)
--- NOTE | 2016-12-31 19:54 | NUR ---
RESUMED CARE OF PT, LYING IN BED RESPIRATIONS EVEN AND UNLABORED ON ROOM AIR. 73 SR ON TELEMETRY. RIGHT GROIN WNL, PEDAL PULSE PALPABLE. NS INFUSING @ 75. NO NEEDS VOICED AT THIS TIME, CALL LIGHT IN REACH. WILL CONTINUE TO MONITOR. SEE NURSE ASSESSMENT.
[2016-12-31 20:02] VITALS: BP 111/62
[2017-01-01 00:35] VITALS: BP 124/54
[2017-01-01 01:18] VITALS: Ht 195.6 cm; Wt 79.5 kg
[2017-01-01 05:38] VITALS: BP 129/65
--- NOTE | 2017-01-01 07:30 | NUR ---
RECEIVED PT IN BED AAOX4 RESP UNLABORED DENIES ANY NEEDS AT THIS TIME
[2017-01-01 08:23] VITALS: BP 167/77
--- NOTE | 2017-01-01 09:20 | NUR ---
REVIEWED DISCHARGE INSTRUCTIONS WITH PT AND BOTH STATE UNDERSTANDING COPY GIVEN DCD SALINE LOCK TO LFA WITH IV CATHETER INTACT SITE FREE OF REDNESS OR EDEMA PT DISCHARGED HOME IN STABLE CONDITION LEFT UNIT WITH ALL PERSONAL BELONGINGS
== END 2017-01-01 09:20 | disposition home or self-care (01) ==
LOC: D.CATH 11:43 → D.M2 18:00 → D.CATH 01-01 09:20
PROVIDERS: Internal Medicine Cardiovascular Disease
DX: I70.212 Atherosclerosis of native arteries of extremities with intermittent claudication, left leg (principal); Z79.82 Long term (current) use of aspirin; Z79.899 Other long term (current) drug therapy; Z01.812 Encounter for preprocedural laboratory examination

== ENCOUNTER → 2017-01-28 09:42 | Outpatient (CLI) | payer OTHER | END | disposition home or self-care (01) | LOC: D.CT 01-22 13:00 | DX: I73.9 Peripheral vascular disease, unspecified (principal); I70.219 Atherosclerosis of native arteries of extremities with intermittent claudication, unspecified extremity ==

== ENCOUNTER 2017-02-19 06:33 | Outpatient (CLI) | payer OTHER ==
--- NOTE | ~2017-02-19 | HEMODYNAMI ---
PATIENT:SADE COOPER MEDICAL RECORD: [id number] : 57 LOCATION:D.CAT ADMISSION DATE: 02/19/17 Generatedon:02/19/201711:09 Patient name: SADE COOPER Patient #: [id number] SSN: : 1955 Date of study: 02/19/2017 Page: Of Hemodynamic Procedure Report Patient Data Patient Demographics Procedure consent was obtained First Name: SADE Gender: Male Last Name: KENNETH : 1955 Middle Initial: L Age: 61 year(s) Patient #: [id number] Race: Unknown Additional ID: [id number] Contact details [address]: [address] [place] [address] State: [place] City: [place] Zip code: [address] Past Medical History Allergies Allergen Reaction Date Comments Reported Penicillins 11/17/2016 Other allergy 12/31/2016 PCN Other allergy 02/19/2017 PCN Admission Admission Data Admission Date: 02/19/2017 Admission Time: 6:33 Lab Results Lab Result Date: 02/19/2017 Lab Result Time: 7:28 Biochemistry Name Units Result Min Max BUN mg/dl 20 --(----)*- 7 18 Creatinine mg/dl 0.8 --(-*--)-- 0.6 1.3 CBC Name Units Result Min Max Hematocrit % 47.5 --(-*--)-- 42 54 Hemoglobin g/dl 16.3 --(--*-)-- 13.5 17.5 Procedure Procedure Types Cath Procedure Peripheral vascular Intervention Stent Stent-Fem/Popw/plasty Procedure Description Procedure Date Procedure Date: 02/19/2017 Procedure Start Time: 9:44 Procedure End Time: 11:09 Procedure Staff Name Function Librado Henrandez MD Performing Physician Candis Hendricks RT Scrub Rose Landa RN Nurse Koby Robertson RT Monitor Rhett Thomas RT Scrub Procedure Data Cath Procedure Fluoroscopy Diagnostic fluoroscopy Total fluoroscopy Time: time: 19.6 min 19.6 min Diagnostic fluoroscopy Total fluoroscopy dose: 225 dose: 225 mGy mGy Contrast Material Contrast Material Type Amount (ml) Isovue 300 224 Entry Location Entry Primary Successful Side Size Upsize 1 Upsize Entry Closure [place] ccessful Closure Location (Fr) (Fr) 2 (Fr) Remarks Device Remarks Femoral Right 6 Fr 6 Fr 6 Fr Exoseal artery Short Mid-Length Short Estimated blood loss: 10 ml Diagnostic catheters Device Type Used For End Catheter Placement Diagnostic 5Fr IMT Procedure Catheter Procedure Complications No complications Procedure Medications Medication Administration Route Dosage Oxygen NC 2 l/min Lidocaine 2% added to field 20 Heparin Flush Bag added to field 2 bags (1000units/500ml NS) 0.9% NaCl I.V. 100 ml/hr Versed I.V. 1 mg Fentanyl I.V. 50 mcg Versed I.V. 1 mg Fentanyl I.V. 50 mcg Versed I.V. 1 mg Fentanyl I.V. 50 mcg Versed I.V. 1 mg Fentanyl I.V. 50 mcg Heparin Bolus I.V. 7000 units Versed I.V. 1 mg Fentanyl I.V. 50 mcg Versed I.V. 1 mg Fentanyl I.V. 50 mcg Versed I.V. 1 mg Fentanyl I.V. 50 mcg Nitroglycerin IC/IA I.A. 100 mcg Versed I.V. 1 mg Fentanyl I.V. 50 mcg Fentanyl I.V. 50 mcg Nitroglycerin IC/IA I.A. 100 mcg Fentanyl I.V. 50 mcg Nitroglycerin IC/IA I.A. 100 mcg Plavix P.O. 75 mg Hemodynamics Rest HGB: 16.3 (g/dl) Heart Rate: 70 (bpm) Snapshots Pre Cath Intra NCS Post Cath Vital Signs Time Heart Resp SPO2 NIBP (mmHg) Rhythm Pain Sedation Rate (ipm) (%) Status Level (bpm) 9:29:43 60 17 100 162/80(129) NSR 0 (11) 10(A) , No pain 9:34:05 61 20 100 137/76(110) NSR 0 (11) 10(A) , No pain 9:38:21 69 19 98 117/73(96) NSR 0 (11) 10(A) , No pain 9:42:29 71 20 98 122/71(95) NSR 0 (11) 10(A) , No pain 9:46:41 68 16 98 116/69(91) NSR 0 (11) 9(A) , No pain 9:50:49 75 18 98 120/73(94) NSR 0 (11) 9(A) , No pain 9:54:59 69 17 97 114/72(88) NSR 0 (11) 9(A) , No pain 9:59:06 72 14 97 109/69(81) NSR 0 (11) 9(A) , No pain 10:03:14 77 15 96 95/61(78) NSR 0 (11) 9(A) , No pain 10:07:16 76 15 97 107/65(86) NSR 0 (11) 9(A) , No pain 10:11:22 71 16 96 109/70(91) NSR 0 (11) 9(A) , No pain 10:15:27 73 16 95 123/71(100) NSR 0 (11) 9(A) , No pain 10:19:37 69 15 97 129/72(105) NSR 0 (11) 9(A) , No pain 10:23:51 67 14 94 118/68(98) NSR 0 (11) 9(A) , No pain 10:27:59 74 14 95 98/69(79) NSR 0 (11) 9(A) , No pain 10:32:01 70 14 95 108/66(87) NSR 0 (11) 9(A) , No pain 10:36:04 71 15 97 123/75(102) NSR 0 (11) 9(A) , No pain 10:40:17 67 15 96 114/64(93) NSR 0 (11) 9(A) , No pain 10:44:24 66 13 96 110/65(88) NSR 0 (11) 9(A) , No pain 10:48:30 68 12 97 118/72(89) NSR 0 (11) 9(A) , No pain 10:52:40 73 15 95 108/68(91) NSR 0 (11) 10(A) , No pain 10:56:44 69 12 96 116/72(83) NSR 0 (11) 10(A) , No pain 11:00:53 70 12 96 112/63(86) NSR 0 (11) 10(A) , No pain 11:04:59 75 15 97 127/70(96) NSR 0 (11) 10(A) , No pain 11:09:07 74 19 99 129/81(110) NSR 0 (11) 10(A) , No pain Medications Time Medication Route Dose Verified Delivered Reason Notes Effectiveness by by 9:27:55 Oxygen NC 2 Librado Buffie used for l/min Ricardo Landa RN procedure 9:28:04 Lidocaine 2% added 20ml Librado Librado for local to vial Ricardo Hernandez MD anesthetic field 9:28:11 Heparin Flush added 2 Librado Librado used for Bag to bags Ricardo Hernandez MD procedure (1000units/500ml field NS) 9:28:25 0.9% NaCl I.V. 100 Librado Buffie Per physician ml/hr Ricardo Landa RN 9:37:41 Versed I.V. 1 mg Librado Buffie for sedation Ricardo Landa RN 9:37:47 Fentanyl I.V. 50 Librado Buffie for sedation mcg Ricardo Landa RN 9:42:03 Fentanyl I.V. 50 Librado Buffie for sedation mcg Ricardo Landa RN 9:42:59 Versed I.V. 1 mg Librado Buffie for sedation Ricardo Landa RN 9:46:21 Versed I.V. 1 mg Librado Buffie for sedation Ricardo aLnda RN 9:46:25 Fentanyl I.V. 50 Librado Buffie for sedation mcg Ricardo Landa RN 9:53:38 Versed I.V. 1 mg Librado Buffie for sedation Ricardo Landa RN 9:53:42 Fentanyl I.V. 50 Librado Buffie for sedation mcg Ricardo Landa RN 9:57:24 Heparin Bolus I.V. 7000 Librado Buffie for verifi ed units Ricardo Landa RN anticoagulation with dr hernandez 10:07:10 Versed I.V. 1 mg Librado Buffie for sedation Ricardo Landa RN 10:07:13 Fentanyl I.V. 50 Librado Buffie for sedation mcg Ricardo Landa RN 10:14:41 Versed I.V. 1 mg Librado Buffie for sedation Ricardo Landa RN 10:14:46 Fentanyl I.V. 50 Librado Buffie for sedation mcg Ricardo Lanad RN 10:21:04 Versed I.V. 1 mg Librado Buffie for sedation Ricardo Landa RN 10:21:07 Fentanyl I.V. 50 Librado Buffie for sedation mcg Ricardo Landa RN 10:25:25 Nitroglycerin I.A. 100 Librado Librado for IC/IA mcg Ricardo Hernandez MD vasodilation 10:35:25 Versed I.V. 1 mg Librado Buffie for sedation Ricardo Landa RN 10:35:28 Fentanyl I.V. 50 Librado Buffie for sedation mcg Ricardo Landa RN 10:47:16 Fentanyl I.V. 50 Librado Buffie for sedation mcg Ricardo Landa RN 10:49:59 Nitroglycerin I.A. 100 Librado Librado for IC/IA mcg Ricardo Hernandez MD vasodilation 10:53:47 Fentanyl I.V. 50 Librado Buffie for sedation mcg Ricardo Landa RN 10:57:55 Nitroglycerin I.A. 100 Librado Librado for IC/IA mcg Ricardo Hernandez MD vasodilation 11:03:32 Plavix P.O. 75 mg Librado Buffie for Ricardo Landa RN antiplatelet therapy Procedure Log Time Note 9:06:45 Rose Landa RN sent for patient. Start room use. 9:06:45 Time tracking: Regular hours 9:06:49 Plan of Care:Hemodynamics will remain stable., Cardiac rhythm will remain stable., Comfort level will be maintained., Respiratory function will remain adequate., Patient/ family verbilizes understanding of procedure., Procedure tolerated without complication., Recovers from procedure without complications.. 9:16:51 H&P Date Dictated: 02/19/2017 Within 30 days and on chart.. 9:19:05 Lab Result : Hemoglobin 16.3 g/dl 9:19:05 Lab Result : Hematocrit 47.5 % 9:19:05 Lab Result : BUN 20 mg/dl 9:19:05 Lab Result : Creatinine 0.8 mg/dl 9:19:25 Patient received from Pre/Post Procedure Room to CCL 2 Alert and oriented. Tansferred to table in Supine position. 9:19:27 Warm blankets applied, and minoo hugger turned on for patient comfort. 9:19:27 Correct patient and procedure confirmed by team. 9:19:28 Signed procedure consent form obtained from patient. 9:19:33 ECG and BP/O2 sat monitors applied to patient. 9:19:35 Pre-procedure instructions explained to patient. 9::35 Pre-op teaching completed and patient verbalized understanding. 9:19:37 Family in waiting room. 9:19:38 Patient NPO since Midnight. 9:19:53 Patient allergic to Other allergyPCN 9:27:55 Oxygen 2 l/min NC was administered by Rose Landa RN; used for procedure; 9:28:04 Lidocaine 2% 20ml vial added to field was administered by Librado Hernandez MD; for local anesthetic; 9:28:11 Heparin Flush Bag (1000units/500ml NS) 2 bags added to field was administered by Librado Hernandez MD; used for procedure; 9:28:25 0.9% NaCl 100 ml/hr I.V. was administered by Rose Landa RN; Per physician; 9:28:29 Vital chart was started 9:30:37 Is patient on blood thinner?Yes 9:30:39 ACC The patient was administered the following blood thiners within the last 24 hours: ACCPlavix 9:30:41 If diabetic: On Metformin? No 9:30:53 Previous problem with sedation/anesthesia? No ? 9:30:54 Snore? Yes 9:30:55 Sleep apnea? No 9:30:56 Deviated septum? No 9:30:56 Opens mouth fully? Yes 9:30:57 Sticks out tongue? Yes 9:30:59 Airway obstruction? No ? 9:31:02 Dentures? Yes In tight 9:34:58 Pre procedure: right dorsailis pedis pulse Doppler 9:35:00 Pre procedure: left dorsailis pedis pulse 1+ Palpable, but thready & weak; easily obliterated 9:35:02 Patient pain scale 0/10 ?. 9:35:12 IV patent on arrival in left forearm with 0.9% NaCl at KVO. 9:35:14 Lab results completed and on chart. 9:35:18 Bilateral groins area was prepped with chlora-prep and draped in sterile fashion 9:35:19 Alarms reviewed by R. N. 9:35:19 Sharps counted by scrub and verified by R.N. 9:37:04 Use device set Femoral PCI 9:37:06 Tegaderm 4 x 4 opened to sterile field. 9:37:07 Acist Manifold opened to sterile field. 9:37:08 PERCUTANEOUS ENTRY 19GA needle opened to sterile field. 9:37:08 Acist Syringe opened to sterile field. 9:37:09 Acist Hand Control opened to sterile field. 9:37:09 Bag Decanter opened to sterile field. 9:37:10 Medline Cath Pack opened to sterile field. 9:37:10 Terumo 6Fr Hooper Sheath opened to sterile field. 9:37:11 St Ignacio 260cm J .035 wire opened to sterile field. 9:37:11 Merit BasixCompak Inflation Kit opened to sterile field. 9:37:18 Baseline sample Acquired. 9:37:24 Rhythm: sinus rhythm 9:37:25 Full Disclosure recording started 9:37:29 Physician arrived 9:37:30 --------ALL STOP TIME OUT------ 9:37:30 Final Timeout: patient, procedure, and site verified with staff and physician. All members of the team are in agreement. 9:37:31 Bilateral groins site verified by team. 9:37:34 Physical assessment completed. ASA score P 2 - A patient with mild systemic disease as per Librado Hernandez MD. 9:37:36 Sedation plan: IV Moderate Sedation Versed, Fentanyl 9:37:41 Versed 1 mg I.V. was administered by Rose Landa RN; for sedation; 9:37:47 Fentanyl 50 mcg I.V. was administered by Rose Landa RN; for sedation; 9:42:03 Fentanyl 50 mcg I.V. was administered by Rose Landa RN; for sedation; 9:42:59 Versed 1 mg I.V. was administered by Rose Landa RN; for sedation; 9:44:46 Procedure started. 9:44:52 Local anesthetic to left femerol artery with Lidocaine 2% by Librado Hernandez MD.INITIAL ACCESS ONLY 9:45:21 A 6 Fr Short sheath was inserted into the Right Femoral artery 9:45:42 Terumo Super Stiff Angled 260cm glide wire opened to sterile field. 9:45:43 Terumo 6Fr Hooper Destination Sheath opened to sterile field. 9:46:10 Zero performed for pressure channel P1 9:46:21 Versed 1 mg I.V. was administered by Rose Landa RN; for sedation; 9:46:25 Fentanyl 50 mcg I.V. was administered by Roes Landa RN; for sedation; 9:49:22 A Diagnostic 5Fr IMT Catheter was advanced over the wire and used for Procedure. 9:49:23 Right leg runoff performed. 9:49:39 Watts wire advanced. 9:50:36 Watts wire advanced around horn. 9:53:38 Versed 1 mg I.V. was administered by Rose Landa RN; for sedation; 9:53:42 Fentanyl 50 mcg I.V. was administered by Rose Landa RN; for sedation; 9:54:31 Catheter removed. 9:55:18 Sheath upsized to a 6 Fr Mid-Length. 9:57:24 Heparin Bolus 7000 units I.V. was administered by Rose Landa RN; for anticoagulation; verified with dr hernandez 9:58:07 CXI SUPPORT .018 150CM STR catheter opened to sterile field. 9:58:15 CSI Regalia wire 300cm opened to sterile field. 9:59:20 CXI SUPPORT .018 150CM STR catheter advanced. 10:00:02 regalia wire advanced. 10:07:10 Versed 1 mg I.V. was administered by Rose Landa RN; for sedation; 10:07:13 Fentanyl 50 mcg I.V. was administered by Rose Landa RN; for sedation; 10:14:41 Versed 1 mg I.V. was administered by Rose Landa RN; for sedation; 10:14:46 Fentanyl 50 mcg I.V. was administered by Rose Landa RN; for sedation; 10:15:15 Terumo 5FR ANGLED 100CM glide catheter opened to sterile field. 10:15:47 CXI catheter removed. 10:15:57 5 Fr ANGLED guide catheter was inserted over the wire 10:16:32 The patient's family notified of status per Koby Robertson RT(R). 10:17:12 Wire removed. 10:17:33 CSI ASAHI TREASURE 12 300CM guide wire opened to sterile field. 10:17:43 [place] wire advanced. 10:21:04 Versed 1 mg I.V. was administered by Rose Landa RN; for sedation; 10:21:07 Fentanyl 50 mcg I.V. was administered by Rose Landa RN; for sedation; 10:25:25 Nitroglycerin IC/IA 100 mcg I.A. was administered by Librado Hernandez MD; for vasodilation; 10:26:13 Wire removed. 10:26:17 glide wire advanced. 10:26:55 Catheter removed. 10:35:17 Watts Catheter advanced. 10:35:25 Versed 1 mg I.V. was administered by Rose Landa RN; for sedation; 10:35:27 Wire removed. 10:35:28 Fentanyl 50 mcg I.V. was administered by Rose Landa RN; for sedation; 10:35:41 Floyd BMW Rudolph 2 J-tip 300cm 0.014 guide wir opened to sterile field. 10:36:02 BMW wire advanced. 10:37:45 Wire advanced across lesion. 10:39:49 Inflation number: 1 A Mozec Rx 3.0 x 20 balloon was prepped and advanced across the Distal Superficial Femoral, Right, then inflated to 7 HAILEY for 0:28 (min:sec). 10:43:56 Balloon removed over the wire. 10:47:16 Fentanyl 50 mcg I.V. was administered by Rose Landa RN; for sedation; 10:48:13 Inflation Number: 2 A fabriktronic Integrity 4.0 X 22 stent was prepped and advanced across the Distal Superficial Femoral, Right. The stent was deployed at 9 HAILEY for 0:10 (min:sec). 10:48:40 Stent catheter was removed intact over wire. 10:49:59 Nitroglycerin IC/IA 100 mcg I.A. was administered by Librado Hernandez MD; for vasodilation; 10:50:07 Mozec Rx 3.0 x 20 balloon was prepped and advanced over the wire. 10:50:18 Wire removed. 10:52:42 bmw wire advanced. 10:53:35 Inflation number: 3 The stent balloon was then re-inflated across the Distal Superficial Femoral, Right to 1 HAILEY for 0:41 (min:sec). 10:53:47 Fentanyl 50 mcg I.V. was administered by Rose Landa RN; for sedation; 10:55:10 Inflation number: 4 The stent balloon was then re-inflated across the Distal Superficial Femoral, Right to 3 HAILEY for 0:50 (min:sec). 10:57:15 Wire removed. 10:57:55 Nitroglycerin IC/IA 100 mcg I.A. was administered by Librado Hernandez MD; for vasodilation; 11::24 Balloon removed over the wire. 11::25 Wire removed. 11:01:55 Catheter removed. 11:02:00 Sheath upsized to a 6 Fr Short. 11:02:13 Cordis 6Fr Exoseal opened to sterile field. 11:02:21 Sheath removed intact; hemostasis achieved with Exoseal to the Right Femoral artery. 11:02:23 Procedure ended.(Physican Out) 11:02:39 Fluoroscopy time 19.60 minutes. 11:02:43 Flurop Dose total: 225 11:02:43 Fluoroscopy dose: 225 mGy 11:02:47 Contrast amount:Isovue 300 224ml. 11:02:50 Sharps counted by scrub and verified by R.N. 11:02:52 Insertion/operative site no bleeding no hematoma. 11:02:55 Post-op/insertion site Left Femoral artery dressed using a 4 x 4 and Tegaderm. 11:03:05 Post left femerol artery:stable, soft, clean and dry 11:03:06 Post Procedure Pulses reassessed and unchanged 11:03:09 Post-procedure physical assessment completed. ASA score P 2 - A patient with mild systemic disease as per Librado Hernandez MD. 11:03:11 Post procedure rhythm: unchanged. 11:03:15 Estimated blood loss: 10 ml 11:03:17 Post procedure instruction explained to patient.Patient verbalizes understanding. 11:03:18 Patient needs reinforcement of post procedure teaching. 11:03:32 Plavix 75 mg P.O. was administered by Rose Landa RN; for antiplatelet therapy; 11:03:42 Procedure type changed to Cath procedure, Peripheral vascular Intervention, Stent, Stent-Fem/Popw/plasty 11:09:00 Procedure and supply charges have been captured, reviewed, submitted and are correct. 11:09:05 Procedure Complication : No complications 11:09:08 Vital chart was stopped 11:09:09 See physician's report for complete and final results. 11:09:10 Report given to Pre/Post Procedure Room. 11:09:12 Patient transfered to Pre/Post Procedure Room with Stretcher. 11:09:14 Procedure ended. 11:09:14 Full Disclosure recording stopped 11:09:25 End room use (Document Last) Intervention Summary Intervention Notes Time ActionType Lesion and Equipment Action# Pressure Duration Attributes Used 10:39:49 Inflate Distal Mozec Rx 1 7 00:28 balloon Superficial 3.0 x 20 Femoral, balloon Right 10:48:13 Place stent Distal Medtronic 2 9 00:10 Superficial Integrity Femoral, 4.0 X 22 Right stent 10:53:35 Reinflate Distal Medtronic 3 1 00:41 stent Superficial Integrity balloon Femoral, 4.0 X 22 Right stent 10:55:10 Reinflate Distal Medtronic 4 3 00:50 stent Superficial Integrity balloon Femoral, 4.0 X 22 Right stent Device Usage Item Name Manufacture Quantity Catalog Number Hospital Part Current Ri nimal Lot# / Charge Number Stock Stock Serial# Code Tegaderm 4 x 3M 1 [id number] 508002 5 4 Acist Acist Medical 1 71087 012043 030255 050587 5 Manifold Systems Inc Acist Acist Medical 1 18069 216855 249809 499713 20 Syringe Systems Inc Acist Hand Acist Medical 1 41369 201048 653975 482273 5 Control Systems Inc Bag Decanter Microtek 1 2002S 826029 90850 486230 5 MiFi Inc. Medline Cath Cardinal 1 [id number] 608279 18027 537488 5 [employer] Terumo 6Fr Terumo 1 [id number] 314718 980955 232026 [address] Ignacio 1 854504 907905 379400 750435 30 260cm J .035 wire [facility] 1 [id number] 196809 956629 802079 15 BasixCompak Inflation Kit Terumo Super Terumo 1 [id number] 360333 572268 233899 5 Stiff Angled 260cm glide wire Terumo 6Fr Terumo 1 RSR01 060337 41475 377935 5 Hooper Destination Sheath [facility] [place] 1 [id number] 443778 660722 25484 5 5Fr IMT Scientific Catheter PERCUTANEOUS [employer] 1 [id number] 007022 110932 5 ENTRY 19GA needle CXI SUPPORT [employer] 1 [id number] 284387 358619 5 .018 150CM STR catheter CSI [place] Cardiovascular 1 [id number] 151708 258324 1 wire 300cm systems Terumo 5FR Terumo 1 CG508 131231 87561 733177 4 ANGLED 100CM glide catheter CSI ASAMS [facility] 1 [id number] 207240 511471 010233 5 TREASURE 12 systems 300CM guide wire Floyd BMW Floyd 1 [id number] 993211 215190 142292 5 Rudolph 2 Vascular J-tip 300cm 0.014 guide wir Mozec Rx 3.0 Cardinal 1 [id number] 658554 10043 175252 5 UMOB06 x 20 balloon Health Medtronic Medtronic 1 [id number] 308354 742941 0 [id number] Integrity 4.0 X 22 stent Cordis 6Fr Cardinal 1 EX600 622233 639850 865698 10 MWI Signature Audit [place] Stage Time Signature Unsigned Intra-Procedure 02/19/2017 Koby Robertson 11:09:47 AM RT(R) Signatures Monitor : Koby Robertson RT Signature : Date : Time : [place] [id number] [place] [address]
[2017-02-19] MEDS ORDERED: PLAVIX75 MG PO (07:19)
[2017-02-19 07:32] VITALS: BMI 20.2
[2017-02-19 07:36] LABS: BASOPHILS 0.2 % (0-2); EOSINOPHILS 1.3 % (0-7); HEMATOCRIT 47.5 % (42.0-54.0); HEMOGLOBIN 16.3 g/dL (13.5-17.5); IMMATURE GRANULOCYTES 0.2 % (0-5); LYMPHOCYTES 15.8 % (15-50); MCH 33.7 pg (26.0-34.0); MCHC 34.3 g/dL (31.0-37.0); MCV 98.3 fL (80.0-100.0); MEAN PLATELET VOLUME 10.2 fL (7.4-10.4); MONOCYTES 5.2 % (2-11); NEUTROPHILS 77.3 % (40-80); PLATELET COUNT 232 10x3/uL (130-400); RBC 4.83 10x6/uL (4.20-6.10); RDW 13.2 % (11.5-14.5); WBC 11.2 10x3/uL (4.8-10.8)
[2017-02-19 07:48] LABS: CALC OSMOLALITY 285 mosm/kg (275-300); CALCIUM 9.6 mg/dL (8.5-10.1); CARBON DIOXIDE 27.4 mmol/L (21.0-32.0); CHLORIDE - SERUM 106 mmol/L (98-107); CREATININE - SERUM 0.8 mg/dL (0.6-1.3); GLUCOSE 104 mg/dL (74-106); POTASSIUM - SERUM 4.6 mmol/L (3.5-5.1); SODIUM 142 mmol/L (136-145); UREA NITROGEN 20 mg/dL (7-18); eGFR NON AFRICAN AMERICAN > 90 mL/min (90-120)
--- NOTE | 2017-02-19 11:38 | NUR ---
1125 RECEIVED PT FROM METAL WIRE TECHNICIAN. PT IS DROWSY, DENIES ANY C/O AT THIS TIME. DRESSING TO LEFT GROIN IS CDI, AREA IS SOFT AND NONTENDER. PEDAL PULSES PALPABLE X4, WEAK AND REGULAR. FEET ARE WARM, BILAT. CAP REFILL IS BRISK. BP 151/70, HR 69. DR ROSSI AT BEDSIDE TALKING WITH PT'S . CALL LIGHT IN REACH. INSTRUCTED PT ON KEEPING HOB FLAT AND LEFT LEG STRAIGHT AND PT VERBALIZES UNDERSTANDING.
--- NOTE | 2017-02-19 11:43 | NUR ---
1143 DRESSING LEFT GROIN IS CDI, AREA IS SOFT AND NONTENDER. PULSES WEAK BUT PALPABLE, CAP REFILL IS BRISK. CALL LIGHT IN REACH, PT DENIES ANY NEEDS AT THIS TIME.
[2017-02-19] MEDS ORDERED: HYDROCODONE-APA1 TAB PO (11:45)
--- NOTE | 2017-02-19 12:15 | NUR ---
1215 PT DIMA PO FLUIDS WITH NO C/O. DRESSING TO LEFT GROIN IS CDI, AREA IS SOFT AND NONTENDER. CAP REFILL IS BRISK, FEET WARM PULSES WEAK BUT PALPABLE. PT DENIES ANY C/O AT THIS TIME. CALL LIGHT IN REACH.
--- NOTE | 2017-02-19 12:43 | NUR ---
1240 PT WATCHING TV, DRESSING CDI, PT DENIES ANY C/O. CALL LIGHT IS IN REACH.
--- NOTE | 2017-02-19 13:39 | NUR ---
1339 PT HAS RECEIVED NORCO 10MG TAB PO FOR C/O BACK PAIN, STATES HAS CHRONIC BACK PAIN FROM INJURY AND LAYING ON HIS BACK MAKES IT WORSE. DRESSING TO LEFT GROIN IS CDI, AREA IS SOFT AND NONTENDER. PEDAL PULSES PALPABLE, WEAK AND REGULAR. CALL LIGHT IN REACH.
--- NOTE | 2017-02-19 14:10 | NUR ---
1410 PT VOIDED 400 CC CLEAR YELLOW URINE TO URINAL. DRESSING LEFT GROIN IS CDI, AREA IS SOFT AND NONTENDER.
--- NOTE | 2017-02-19 15:14 | NUR ---
1500 HOB ELEVATED, LEFT GROIN STABLE. 1515 IV DC'D WITH CATH INTACT. PT IS DRESSING FOR DC TO HOME. LEFT GROIN STABLE WITH NO BLEEDING OR HEMATOMA NOTED.
--- NOTE | 2017-02-19 15:36 | NUR ---
1530PT HAS AMBULATED IN THE ROOM, DRESSED FOR DC TO HOME. LEFT GROIN REMAINS STABLE WITH NO BLEEDING OR HEMATOMA NOTED. PT HAS DIMA PO FLUIDS BUT REFUSED SANDWICH. DC INSTRUCTIONS REVIEWED WITH PT WHO VERBALIZES UNDERSTANDING, WRITTEN COPIES, HOMECARE BOOKLET, EXOSEAL CARD AND BOOKLET, STENT CARD AND NORCO 10MG PRESCRIPTION TO PATIENT. PT DENIES ANY C/O UPON DC. HAS VOIDED QS. PT ESCORTED TO PRIVATE AUTO VIA WC BY NURSE WITH DRIVING HIM HOME.
== END 2017-02-19 15:30 | disposition home or self-care (01) ==
LOC: D.CATH 06:33
PROVIDERS: Internal Medicine Cardiovascular Disease
DX: I70.211 Atherosclerosis of native arteries of extremities with intermittent claudication, right leg (principal); Z95.820 Peripheral vascular angioplasty status with implants and grafts; I25.10 Atherosclerotic heart disease of native coronary artery without angina pectoris; I10 Essential (primary) hypertension; F17.200 Nicotine dependence, unspecified, uncomplicated; Z79.02 Long term (current) use of antithrombotics/antiplatelets; Z79.01 Long term (current) use of anticoagulants; Z79.82 Long term (current) use of aspirin; Z88.0 Allergy status to penicillin; Z01.812 Encounter for preprocedural laboratory examination

== ENCOUNTER → 2020-11-05 08:40 | Outpatient (CLI) | payer OTHER ==
[~2020-11-05 08:40] MED LIST changes: +HYDROCODONE-APA1 TAB PO; +PLAVIX75 MG PO
== END | disposition home or self-care (01) ==
LOC: D.HCCARDIO 08:40
PROVIDERS: ATTEND Internal Medicine Cardiovascular Disease
DX: I25.10 Atherosclerotic heart disease of native coronary artery without angina pectoris (principal)

== ENCOUNTER 2020-11-15 06:34 | Day surgery (SDC) | payer OTHER ==
[~2020-11-15] VITALS: Ht 195.6 cm; Wt 77.1 kg
--- NOTE | ~2020-11-15 | HEMODYNAMI ---
PATIENT:SADE COOPER MEDICAL RECORD: [id number] : 57 LOCATION:D.CAT ADMISSION DATE: 11/15/20 Generatedon:18:43 Patient name: SADE COOPER Patient #: [id number] SSN: : 1955 Date of study: 11/15/2020 Page: Of Hemodynamic Procedure Report Patient Data Patient Demographics Procedure consent was obtained First Name: SADE Gender: Male Last Name: KENNETH : 1955 Middle Initial: L Age: 65 year(s) Patient #: [id number] Race: Unknown Additional ID: [id number] Contact details [address]: [address] [place] [address] State: [place] City: [place] Zip code: [address] Past Medical History Allergies Allergen Reaction Date Comments Reported Penicillins 11/17/2016 Other allergy 12/31/2016 PCN Other allergy 02/19/2017 PCN Penicillins 11/15/2020 Admission Admission Data Admission Date: 11/15/2020 Admission Time: 6:34 Procedure Procedure Types Cath Procedure Diagnostic Procedure LHC LH w/Coronaries Sedation Charges Moderate Sedation 25-39 minutes PCI Procedure Coronary Stent Coronary Stent Initial Hemochron ACT Test Procedure Description Procedure Date Procedure Date: 11/15/2020 Procedure Start Time: 8:07 Procedure End Time: 8:39 Procedure Staff Name Function Librado Silva MD Performing Physician Imer Gardiner RT Monitor Irwin Jose RN Nurse Laura Holder RT Scrub Procedure Data Cath Procedure Fluoroscopy Diagnostic fluoroscopy Total fluoroscopy Time: 4.2 time: 4.2 min min Diagnostic fluoroscopy Total fluoroscopy dose: 276 dose: 276 mGy mGy Contrast Material Contrast Material Type Amount (ml) Isovue 300 113 Entry Location Entry Primary Successful Side Size Upsize Upsize Entry Closure Succes sful Closure Location (Fr) 1 (Fr) 2 (Fr) Remarks Device Remarks Femoral Right 5 Fr 6 Fr Exoseal artery Short Estimated blood loss: 5 ml Diagnostic catheters Device Type Used For End Catheter Placement MULTIPACK JL 4.0 5Fr Left Coronary catheter Angiography MULTIPACK 3DRC 5Fr Right Coronary catheter Angiography MULTIPACK Pigtail 5 Fr LV Angiography catheter Procedure Complications No complications Procedure Medications Medication Administration Route Dosage 0.9% NaCl I.V. 100 ml/hr Oxygen etCO2 Nasal cannula 2 l/min Heparin Flush Bag added to field 2 bags (1000units/500ml NS) Lidocaine 2% added to field 20 Versed I.V. 1 mg Fentanyl I.V. 50 mcg Versed I.V. 1 mg Fentanyl I.V. 50 mcg Versed I.V. 1 mg 0.9% NaCl I.V. bolus 250 ml 0.9% NaCl I.V. bolus 250 ml Heparin Bolus I.V. 7000 units Nitroglycerin IC/IA I.C. 50 mcg Nitroglycerin IC/IA I.C. 50 mcg Plavix P.O. 75 mg Hemodynamics Rest Heart Rate: 80 (bpm) Pressure Samples Time Site Value (mmHg) Purpose Heart Use Rate(bpm) 8:19 LV 101/3,13 EDP 84 8:20 AO 104/57(77) Pullback 83 8:20 LV 112/2,18 Pullback 83 Gradients Valve Time Site 1 Site 2 Mean SEP/DFP Peak To Heart Use (mmHg) (sec/min) Peak Rate (mmHg) (bpm) Aortic 8:20 LV AO 16 11 8 83 112/2,18 104/57(77) Calculations Valve P-P Mean Valve Index Valve Source Name Gradient Area Flow (cm2) Aortic 8 16 8 16 Snapshots Pre Cath Intra NCS Post Cath Vital Signs Time Heart Resp SPO2 etCO2 NIBP Rhythm Pain Sedation Rate (ipm) (%) (mmHg) (mmHg) Status Level (bpm) 7:54:56 84 18 100 26.2 114/71(92) NSR 0 (11) 10(A) , No pain 7:59:04 79 28 100 25.5 101/66(78) NSR 0 (11) 10(A) , No pain 8:03:10 82 21 96 19.5 87/57(67) NSR 0 (11) 10(A) , No pain 8:07:11 82 18 96 21.7 89/55(65) NSR 0 (11) 10(A) , No pain 8:11:13 79 17 96 23.9 85/54(72) NSR 0 (11) 10(A) , No pain 8:15:10 81 29 98 24.7 104/64(81) NSR 0 (11) 10(A) , No pain 8:19:16 87 28 98 24 94/60(77) NSR 0 (11) 10(A) , No pain 8:23:20 78 20 96 21.7 92/58(68) NSR 0 (11) 10(A) , No pain 8:27:24 77 19 97 27.7 90/55(70) NSR 0 (11) 10(A) , No pain 8:31:27 84 26 96 24 82/55(65) NSR 0 (11) 10(A) , No pain 8:35:27 82 18 98 26.2 87/56(67) NSR 0 (11) 10(A) , No pain 8:39:31 85 31 96 24.7 94/52(63) NSR 0 (11) 10(A) , No pain Medications Time Medication Route Dose Verified Delivered Reason Notes Effectiveness by by 7:54:05 0.9% NaCl I.V. 100 Librado Irwin used for ml/hr Ricardo Jose RN procedure 7:54:15 Oxygen etCO2 2 Librado Irwin used for Nasal l/min Ricardo Jose bar hostess cannula 7:54:23 Heparin Flush added 2 Librado Librado used for Bag to bags Ricardo Silva MD procedure (1000units/500ml field NS) 7:54:33 Lidocaine 2% added 20ml Librado Librado for local to vial Ricardo Silva MD anesthetic field 7:57:31 Versed I.V. 1 mg Librado Irwin for sedation Ricardo Jose RN 7:57:37 Fentanyl I.V. 50 Librado Irwin for sedation mcg Ricardo Jose RN 8:01:23 Versed I.V. 1 mg Librado Irwin for sedation Ricardo Jose RN 8:01:27 Fentanyl I.V. 50 Librado Irwin for sedation mcg Ricardo Jose RN 8:04:08 Versed I.V. 1 mg Librado Irwin for sedation Ricardo Jose RN 8:06:20 0.9% NaCl I.V. 250 Librado Irwin used for bolus ml Ricardo Jose bar hostess 8:25:22 0.9% NaCl I.V. 250 Librado Irwin used for bolus ml Ricardo Jose RN procedure 8:26:13 Heparin Bolus I.V. 7000 Librado Irwin for units Ricardo Jose RN anticoagulation 8:30:51 Nitroglycerin I.C. 50 Librado Librado for IC/IA mcg Ricardo Silva MD vasodilation 8:31:50 Nitroglycerin I.C. 50 Librado Librado for IC/IA mcg Ricardo Silva MD vasodilation 8:40:20 Plavix P.O. 75 mg Librado Silva MD Procedure Log Time Note 7:41:59 Procedure Status Elective Heart Cath (OP). 7:42:01 Imer Suit RT(R) sent for patient. Start room use. 7:42:03 Time tracking: Regular hours (M-F 7:00 - 5:00) 7:42:08 Plan of Care:Hemodynamics will remain stable., Cardiac rhythm will remain stable., Comfort level will be maintained., Respiratory function will remain adequate., Patient/ family verbilizes understanding of procedure., Procedure tolerated without complication., Recovers from procedure without complications.. 7:53:53 Vital chart was started 7:54:05 0.9% NaCl 100 ml/hr I.V. was administered by Irwin Jose RN; used for procedure; Verbal order read back and verified. 7:54:15 Oxygen 2 l/min etCO2 Nasal cannula was administered by Irwin Jose RN; used for procedure; Verbal order read back and verified. 7:54:23 Heparin Flush Bag (1000units/500ml NS) 2 bags added to field was administered by Librado Silva MD; used for procedure; Verbal order read back and verified. 7:54:27 Patient received from Pre/Post Procedure Room to CCL 1 Alert and oriented. Tansferred to table in Supine position. 7:54:29 Signed procedure consent form obtained from patient. 7:54:30 Warm blankets applied, and minoo hugger turned on for patient comfort. 7:54:30 Correct patient and procedure confirmed by team. 7:54:31 ECG and BP/O2 sat monitors applied to patient. 7:54:32 Baseline sample Acquired. 7:54:33 Lidocaine 2% 20ml vial added to field was administered by Librado Silva MD; for local anesthetic; Verbal order read back and verified. 7:54:35 Rhythm: sinus rhythm 7:54:36 Full Disclosure recording started 7:54:50 H&P Date Dictated: 10/26/2020 H&P Addendum completed by physician on day of procedure. (MUST COMPLETE FOR ALL OUTPATIENTS). 7:54:51 Pre-procedure instructions explained to patient. 7:54:51 Pre-op teaching completed and patient verbalized understanding. 7:54:55 Family in waiting room. 7:54:56 Patient NPO since Midnight. 7:55:03 Patient allergic to Penicillins 7:55:07 Is the patient allergic to Iodine/contrast media? No. 7:55:09 Is patient on blood thinner?Yes 7:55:12 ACC The patient was administered the following blood thiners within the last 24 hours: ACCAspirin, ACCPlavix 7:55:15 Patient diabetic? No. 7:55:16 ----Pre-sedation anethsthesia assessment.---- 7:55:18 Previous problem with sedation/anesthesia? N/A ? 7:55:20 Previous problem with sedation/anesthesia? No ? 7:55:22 Snore? No 7:55:24 Sleep apnea? No 7:55:25 Deviated septum? No 7:55:26 Opens mouth fully? Yes 7:55:28 Sticks out tongue? Yes 7:55:33 Airway obstruction? No ? 7:55:38 Dentures? Yes in tight 7:55:43 Pre procedure: right dorsailis pedis pulse 1+ Palpable, but thready & weak; easily obliterated 7:55:48 Patient pain scale 0/10 ?. 7:55:53 IV patent on arrival in left antecubital with 0.9% NaCl at [facility]. 7:55:57 Lab results completed and on chart. 7:56:20 Risk of Mortality: .1 7:56:24 Risk of blood transfusion: .4 7:56:27 Risk of DESI: .8 7:56:32 Right groin area was prepped with chlora-prep and draped in sterile fashion 7:56:33 Alarms reviewed by R. N. 7:56:33 Sharps counted by scrub and verified by R.N. 7:56:34 Physician arrived 7:56:37 --------ALL STOP TIME OUT------ 7:56:38 Final Timeout: patient, procedure, and site verified with staff and physician. All members of the team are in agreement. 7:56:39 Right groin site verified by team. 7:56:43 Fire Safety Assessment: A--An alcohol-based skin anteseptic being used preoperatively., C--Open oxygen or nitrous oxide is being used., D--An ESU, laser, or fiber-optic light is being used. 7:56:47 Physical assessment completed. ASA score P 2 - A patient with mild systemic disease as per Librado Silva MD. 7:56:53 3a) 45-59 Moderately reduced kidney function. 7:56:58 Maximum allowable contrast dose (3.7 X eGFR X 0.75)164 ml. 7:57:02 Sedation plan: IV Moderate Sedation Medication:Versed, Fentanyl 7:57:09 Use device set Femoral Dx 7:57:10 ACIST Syringe (01865) opened to sterile field. 7:57:11 Bag Decanter (2002S) opened to sterile field. 7:57:11 Medline Cath Pack ([id number]) opened to sterile field. 7:57:12 ACIST Hand Control (52654) opened to sterile field. 7:57:13 ACIST Manifold (36782) opened to sterile field. 7:57:14 DIAGNOSTIC Multipack 5Fr catheter set ([id number]) opened to sterile field. 7:57:14 Tegaderm 4 x 4 (1626W) opened to sterile field. 7:57:16 SHEATH 5FR Hamilton ([id number]) opened to sterile field. 7:57:17 EMERALD Guide Wire (774-506) opened to sterile field. 7:57:31 Versed 1 mg I.V. was administered by Irwin Jose RN; for sedation; Verbal order read back and verified. 7:57:37 Fentanyl 50 mcg I.V. was administered by Irwin Jose RN; for sedation; Verbal order read back and verified. 8:01:23 Versed 1 mg I.V. was administered by Irwin Jose RN; for sedation; Verbal order read back and verified. 8:01:27 Fentanyl 50 mcg I.V. was administered by Irwin Jose RN; for sedation; Verbal order read back and verified. 8:04:08 Versed 1 mg I.V. was administered by Irwin Jose RN; for sedation; Verbal order read back and verified. 8:06:20 0.9% NaCl 250 ml I.V. bolus was administered by Irwin Jose RN; used for procedure; Verbal order read back and verified. 8:07:16 Procedure started. 8:07:20 Local anesthetic to right femoral artery with Lidocaine 2% by Librado Silva MD.INITIAL ACCESS ONLY 8:08:35 Zero performed for pressure channel P1 8:08:52 A 5 Fr sheath was inserted into the Right Femoral artery 8:11:41 A MULTIPACK JL 4.0 5Fr catheter was advanced over the wire and used for Left Coronary Angiography. 8:11:47 LCA angiography performed. 8:15:00 Catheter exchanged over wire. 8:15:11 A MULTIPACK 3DRC 5Fr catheter was advanced over the wire and used for Right Coronary Angiography. 8:15:16 RCA angiography performed. 8:16:29 Catheter exchanged over wire. 8:16:35 A MULTIPACK Pigtail 5 Fr catheter was advanced over the wire and used for LV Angiography. 8:16:42 LV angiography performed. 8:16:46 LV gram done using UNGER 8:16:47 LV hemodynamics recorded. 8:16:50 Injector settings: Ml/sec: 10, Volume: 20, 8:20:00 EF : 60 % 8:20:30 Catheter exchanged over wire. 8:22:25 Sheath upsized to a 6 Fr Short. 8:22:30 ACC Pre-intervention OTTO Flow is 3. 8:22:44 Pre PCI Site: [place] mRCA has 75% stenosis. 8:22:56 6 Fr JR4 SH guide catheter was inserted over the wire 8:23:12 SHEATH 6FR Hamilton (UOO492) opened to sterile field. 8:23:13 INFLATOR Merit BasixCompak (BE8651) opened to sterile field. 8:23:13 TUBING High Pressure Extension Tubing (Ricardo) ([id number]) opened to sterile field. 8:23:14 GUIDE 6FR JR 4.0 SH catheter ([id number]) opened to sterile field. 8:23:15 BMW 300cm [place] 2 J wire ([id number]) opened to sterile field. 8:25:22 0.9% NaCl 250 ml I.V. bolus was administered by Irwin Jose RN; used for procedure; Verbal order read back and verified. 8:26:06 BMW wire advanced. 8:26:08 Wire advanced across lesion. 8:26:13 Heparin Bolus 7000 units I.V. was administered by Irwin Jose RN; for anticoagulation; Verbal order read back and verified. 8:26:19 Procedure type changed to Cath procedure, Diagnostic procedure, LHC, LHC w/Coronaries, Sedation Charges, Moderate Sedation 25-39 minutes, PCI procedure, Coronary Stent, Coronary Stent Initial, Hemochron ACT Test 8:30:51 Nitroglycerin IC/IA 50 mcg I.C. was administered by Librado Silva MD; for vasodilation; Verbal order read back and verified. 8:31:50 Nitroglycerin IC/IA 50 mcg I.C. was administered by Librado Silva MD; for vasodilation; Verbal order read back and verified. 8:35:11 Place stent Inflation Number: 1 A CLAUDIA RX 2.5 x 30 stent ([id number]) was prepped and advanced across the Mid RCA 75. The stent was deployed at 15 HAILEY for 0:16 (min:sec) . 8:35:35 EXOSEAL 6Fr (EX600) opened to sterile field. 8:35:41 Stent catheter was removed intact over wire. 8:35:47 ACC Post-intervention OTTO Flow is 3. 8:35:49 Wire removed. 8:35:49 Guide catheter removed. 8:36:18 Sheath removed intact; hemostasis achieved with Exoseal to the Right Femoral artery. 8:36:20 Procedure ended.(Physican Out) 8:36:32 Fluoroscopy time 04.20 minutes. 8:36:38 Fluoroscopy dose: 276 mGy 8:36:38 Flurop Dose total: 276 8:36:49 Dose Area Product 61427 mGy/cm. 8:37:05 Contrast amount:Isovue 300 113ml. 8:37:08 Maximum allowable dose exceeded? No. 8:37:09 Sharps counted by scrub and verified by R.N. 8:37:11 Insertion/operative site no bleeding no hematoma. 8:37:15 Post-op/insertion site Right Femoral artery dressed using a 4 x 4 and Tegaderm. 8:37:18 Post right femoral artery:stable 8:37:19 Post Procedure Pulses reassessed and unchanged 8:37:22 Post procedure: right dorsailis pedis pulse 1+ Palpable, but thready & weak; easily obliterated. 8:37:25 Post procedure rhythm: unchanged. 8:37:28 Estimated blood loss: 5 ml 8:37:52 Post procedure instruction explained to patient.Patient verbalizes understanding. 8:37:53 Procedure and supply charges have been captured, reviewed, submitted and are correct. 8:38:59 Procedure Complication : No complications 8:39:01 Vital chart was stopped 8:39:03 [facility] Findings: MVD- MD will discuss options w/ pt 8:39:07 Operative report dictated upon procedure completion. 8:39:07 See physician's report for complete and final results. 8:39:10 Report given to Pre/Post Procedure Room. 8:39:14 Patient transfered to Pre/Post Procedure Room with Stretcher. 8:39:16 Procedure ended. 8:39:16 Full Disclosure recording stopped 8:39:20 End room use (Document Last) 8:40:20 Plavix 75 mg P.O. was administered by Librado Silva MD; ; Verbal order read back and verified. 8:41:52 ACT drawn and resulted at HI seconds. (normal therapeutic range 180-240 seconds). 8:42:12 End room use (Document Last) 8:42:39 End room use (Document Last) Intervention Summary Intervention Notes Time ActionType Lesion and Equipment Used Action# Pressure Duration Attributes 8:35:11 Place stent Mid RCA CLAUDIA RX 2.5 x 1 15 00:16 30 stent ([id number]) Device Usage Item Name Manufacture Quantity Catalog Hospital Part [facility] Lot# / Number Charge Number Stock Stock Serial# Code ACIST Syringe Acist 1 45084 192368 469465 184991 20 (86755) [employer] Systems [employer] Bag Decanter Microtek 1 825968 20371 501509 5 () Medical Inc. Medline Cath Medline 1 [id number] 366534 78487 374278 5 Pack ([id number]) ACIST Hand Acist 1 76158 800563 809234 168205 5 Control Medical (34760) Systems Inc ACIST Manifold Acist 1 83562 889621 166120 229901 5 (14883) Medical Systems Inc DIAGNOSTIC Cardinal 1 PC0380 818213 76875 351196 30 Multipack 5Fr Health catheter set (TT6252) Tegaderm 4 x 4 3M 1 1626W 341059 876303 194730 5 (1626W) SHEATH 5FR Terumo 1 YQP128 172871 881023 545392 5 Hamilton (TLX862) EMERALD Guide Cardinal 1 502-455 101911 754253 997692 5 Wire (502-455) Health MULTIPACK JL Cardinal 1 284401 5 4.0 5Fr Health catheter MULTIPACK 3DRC Cardinal 1 507409 5 5Fr catheter Health MULTIPACK Cardinal 1 429117 5 Pigtail 5 Fr Health catheter SHEATH 6FR Terumo 1 MTZ354 809957 575152 468213 40 Hamilton (CIA933) INFLATOR Merit Merit 1 NW0053 085166 838219 055075 15 Diagnovus Medical (QD2438) TUBING High Merit 1 [id number] 143971 78717 796656 10 Pressure Medical Extension Tubing (Ricardo) (AT6911G) GUIDE 6FR JR Medtronic 1 [id number] 196616 43869 826625 1 4.0 SH catheter ([id number]) BMW 300cm Floyd 1 [id number] 421929 678347 076550 5 [place] 2 J Vascular wire ([id number]) CLAUDIA RX 2.5 x Medtronic 1 [id number] 645271 7890262 974570 5 [id number] 30 stent ([id number]) EXOSEAL 6Fr Cardinal 1 EX600 188327 228113 036208 10 (EX600) Health Signature Audit Baker Stage Time Signature Unsigned Intra-Procedure 11/15/2020 Imer Gardiner RT(R) 8:42:12 AM Intra-Procedure 11/15/2020 Irwin Jose RN 8:42:39 AM Intra-Procedure 11/15/2020 Librado Silva MD 8:43:10 AM [facility] [address] [place] [address]
[2020-11-15 07:25] VITALS: BP 100/61; Ht 195.6 cm; Wt 77.1 kg
[2020-11-15 07:29] LABS: ANION GAP 15.3 mmol/L (8-16); CALCIUM 8.8 mg/dL (8.5-10.1); CARBON DIOXIDE 22.1 mmol/L (21.0-32.0); CHOL - HDL RATIO 3.6 ratio (2.3-4.9); CREATININE - SERUM 1.3 mg/dL (0.6-1.3); POTASSIUM - SERUM 4.4 mmol/L (3.5-5.1)
[2020-11-15] MEDS ORDERED: CELEBREX200 MG PO (07:33)
[2020-11-15] MEDS ORDERED: LISINOPRIL-HCT1 EAC8 PO (07:34)
[2020-11-15] MEDS ORDERED: NORVASC5 MG PO (07:34)
[2020-11-15] MEDS ORDERED: PROTONIX40 MG (07:35)
[2020-11-15 07:50] LABS: BASOPHILS 0.3 % (0-2); EOSINOPHILS 2.8 % (0-7); HEMATOCRIT 41.2 % (42.0-54.0); HEMOGLOBIN 13.9 g/dL (13.5-17.5); LYMPHOCYTES 20.4 % (15-50); MCH 31.9 pg (26.0-34.0); MCHC 33.7 g/dL (31.0-37.0); MCV 94.5 fL (80.0-100.0); MONOCYTES 4.9 % (2-11); NEUTROPHILS 71.6 % (40-80); PLATELET COUNT 264 10x3/uL (130-400); RBC 4.36 10x6/uL (4.20-6.10); RDW 12.8 % (11.5-14.5); WBC 11.4 10x3/uL (4.8-10.8)
--- NOTE | 2020-11-15 08:53 | NUR ---
PT ARRIVES TO ROOM 12 VIA STRETCHER S/P ANGIOGRAM. SEE REGIONAL TRAINING MANAGER. PT PLACED ON MONITORS AND ALARMS ON. IV INFUSING PER ORDERS, DENIES PAIN OR NEEDS, 6FR EXOSEAL TO RIGHT GROIN SEE ASSESSMENT, CALL LIGHT WITH IN REACH
--- NOTE | 2020-11-15 09:09 | NUR ---
BP 89/54 HR 73 INITIATED NS 200CC BOLUS
--- NOTE | 2020-11-15 09:19 | NUR ---
BP 110/61 HR 74 RESPONDED TO FLUID CHALLENAGE, AAOX3, VSS, SR WITH NO ECTOPY, RIGHT GROIN SOFT WITHOUT PALPABLE HEMATOMA NO OOZING OR BLEEDING NOTED EXTREMITY PINK AND WARM POST TIB PULSE DOPPLERED, PT DENIES PAIN OR NEEDS, IV INFUSING PER ORDERS CALL LIGHT WITHIN REACH, DR ROSSI AT BEDSIDE TO REVIEW PROCEDURE WITH PT AND SPOUSE
--- NOTE | 2020-11-15 09:30 | NUR ---
RIGHT GROIN STABLE NO OOZING OR BLEEDING OPSITE C/D/I AREA SOFT WITHOUT PALPABLE HEMATOMA EXTREMITY PINK AND WARM PULSE DOPPLERED , MOVES ALL DIGITS, BP 110/61 HR 69, IV INFUSING PER ORDERS, DENIES PAIN OR NEEDS, CALL LIGHT WITHIN REACH
--- NOTE | 2020-11-15 09:45 | NUR ---
BP 94/55 HR 68, NSR WITH NO ECTOPY, RIGHT GROIN DRESSING C/D/I SOFT WTIHOUT PALPABLE HEMATOMA EXTREMITY PINK AND WARM, PT DENIES PAIN OR NEEDS , IV INFUSING PER ORDERS, CALL LIGHT WITHIN REACH
--- NOTE | 2020-11-15 10:15 | NUR ---
PT RESTING QUIETLY, BP 100/67 HR 85, IV INFUSING PER ORDERS, RIGHT GROIN SOFT WITHOUT PALPABLE HEMATOMA NO OOZING OR BLEEDING EXTREMITY PINK AND WARM , PEDAL PULSE DOPPLERED, MOVES ALL DIGITS, DENIES PAIN OR NEEDS, CALL LIGHT WITH IN REACH
--- NOTE | 2020-11-15 10:45 | NUR ---
PT VOIDS 300 CC CLEAR YELLOW URINE, BP 114/64 HR 68, RIGHT GROIN SOFT WITH PALPABLE HEMATOMA EXTREMITY PINK AND WARM PULSES PALPABLE, DENIES PAIN OR NEEDS, IV INFUSING PER ORDERS, CALL LIGHT WITHIN REACH
--- NOTE | 2020-11-15 11:15 | NUR ---
REPOSITONED PT FOR COMFORT REMAINS SUPINE , VSS, SR WITH NO ECTOPY, RIGHT GROIN SOFT WITHOUT PALPABLE HEMATOMA NO OOZING OR BLEEDING OPSITE C/D/I , EXTREMITY PINK AND WARM PULSES PALPABLE, IV INFUSING PER ORDERS, DENIES PAIN OR NEEDS, CALL LIGHT WITH IN REACH
--- NOTE | 2020-11-15 11:45 | NUR ---
RIGHT GROIN STABLE NO OOZING OR BLEEDING SOFT WITHOUT PALPABLE HEMATOMA EXTREMITY PINK AND WARM PULSES PALPABLE, DENIES PAIN OR NEEDS, VSS, SR NO ECTOPY, IV PATENT, CALL LIGHT WITHIN REACH
--- NOTE | 2020-11-15 12:00 | NUR ---
PT PLACED IN SEMI FOWLERS POSITION , PO FLUIDS AND CRACKER GIVEN DECLINES SANDWICH.
--- NOTE | 2020-11-15 12:30 | NUR ---
DISCHARGE TEACHING STARTED AND COMPLETED WITH PT AND SPOUSE , VERBALIZED UNDERSTANDING , QUESTIONS AND CONCERNS ADDRESSED, RIGHT GROIN SOFT WITHOUT PALPABLE HEMATOMA NO OOZING OR BLEEDING , EXTREMITY PINK AND WARM , PULSES PALPABLE, DENIES PAIN OR NEEDS, IV REMOVED FROM LEFT ARM CATHETER INTACT DRESSING APPLIED. PT DRESSED AND AMBULATES TO BATHROOM WITHOUT DIFFICULTY
--- NOTE | 2020-11-15 13:00 | NUR ---
PT TAKEN TO CAR VIA WHEELCHAIR
== END 2020-11-15 13:00 | disposition home or self-care (01) ==
LOC: D.CATH 06:34
PROVIDERS: ATTEND Internal Medicine Cardiovascular Disease
DX: R55 Syncope and collapse (principal); R94.39 Abnormal result of other cardiovascular function study; I25.10 Atherosclerotic heart disease of native coronary artery without angina pectoris